=== PATIENT | female | born 1945 | race Two or more races ===

== ENCOUNTER 2019-03-11 18:00 | Emergency (ER) | payer OTHER, MEDICAID ==
[~2019-03-11] VITALS: Ht 162.6 cm; Wt 93.9 kg
[2019-03-11] MEDS ORDERED: cloNIDine HCL 0.1 MG TAB PO ONE (18:45)
[2019-03-11] MEDS ORDERED: FUROSEMIDE 40 MG/4 ML VIAL IV ONE (19:15)
[2019-03-11 19:45] LABS: Basophils # (auto) 0.1 uL; Basophils % (auto) 1.1 % (0.0-2.0); Eosinophils # (auto) 0.2 uL; Eosinophils % (auto) 2.3 % (0.0-7.0); Hematocrit 35.7 % (36.0-46.0); Hemoglobin 12.3 g/dL (12.2-16.2); Lymphocytes # (auto) 1.6 uL; Lymphocytes % (auto) 22.7 % (10.0-50.0); Mean Corpuscular Hemoglobin 31.9 pg (28.0-32.0); Mean Corpuscular Hgb Conc. 34.5 g/dL (32.0-36.0); Mean Corpuscular Volume 92.5 fL (80.0-100.0); Monocytes # (auto) 0.5 uL; Monocytes % (auto) 7.6 % (0.0-12.0); Neutrophils # (auto) 4.6 uL; Neutrophils % (auto) 66.3 % (37.0-80.0); Platelet Count (auto) 241 10^3/uL (140-450); Red Blood Cells 3.86 10^6/uL (4.0-5.20); Red Cell Distribution Width 13.1 % (11.8-14.3); White Blood Cell 6.9 10^3/uL (4.4-10.8)
[2019-03-11 19:58] LABS: Albumin 3.5 g/dL (3.4-5.0); Anion Gap 9 (5-15); BUN/Creatinine Ratio 24.1; Blood Urea Nitrogen 21 mg/dL (7-18); Calcium 8.7 mg/dL (8.5-10.1); Carbon Dioxide 28 mmol/L (21-32); Chloride 107 mmol/L (98-107); GFR African American 82 mL/min; GFR Non-African American 68 mL/min; Glucose 113 mg/dL (74-106); Potassium 3.9 mmol/L (3.5-5.1); Sodium 144 mmol/L (136-145)
[2019-03-11 20:06] LABS: Alanine Aminotransferase 20 U/L (13-56); Alkaline Phosphatase 86 U/L (45-117); Aspartate Aminotransferase 16 U/L (15-37); Bilirubin, Total 0.3 mg/dL (0.2-1.0); Magnesium 1.7 mg/dL (1.6-2.6)
[2019-03-11 21:04] VITALS: BP 153/75
== END 2019-03-11 21:00 | disposition home or self-care (01) ==
LOC: ER 18:09
DX: I16.0 Hypertensive urgency (principal); R07.89 Other chest pain; E11.9 Type 2 diabetes mellitus without complications; E78.5 Hyperlipidemia, unspecified; I10 Essential (primary) hypertension; E07.9 Disorder of thyroid, unspecified; Z90.49 Acquired absence of other specified parts of digestive tract; Z86.73 Personal history of transient ischemic attack (TIA), and cerebral infarction without residual deficits
CPT/HCPCS: 36415; 71046; 80053; 83735; 83880; 84484; 85025; 93005; 94761; 96374; 99284; J1940

== ENCOUNTER 2023-03-10 14:48 | Emergency (ER) | payer OTHER, MEDICAID ==
[~2023-03-10] VITALS: Ht 157.5 cm; Wt 82.0 kg
[2023-03-10 15:22] LABS: Basophils # (auto) 0 10 ^3/uL (0-0.2); Basophils % (auto) 0.3 % (0.0-2.0); Eosinophils # (auto) 0.1 10 ^3/uL (0-0.8); Eosinophils % (auto) 1.2 % (0.0-7.0); Hematocrit 34.4 % (36.0-46.0); Hemoglobin 11.2 g/dL (12.2-16.2); Lymphocytes # (auto) 1.1 10 ^3/uL (0.4-5.4); Lymphocytes % (auto) 13.2 % (10.0-50.0); Mean Corpuscular Hemoglobin 28.8 pg (28.0-32.0); Mean Corpuscular Hgb Conc. 32.5 g/dL (32.0-36.0); Mean Corpuscular Volume 88.5 fL (80.0-100.0); Monocytes # (auto) 0.5 10 ^3/uL (0-1.3); Monocytes % (auto) 5.8 % (0.0-12.0); Neutrophils # (auto) 6.6 10 ^3/uL (1.6-8.6); Neutrophils % (auto) 79.5 % (37.0-80.0); Red Blood Cells 3.89 10^6/uL (4.0-5.20); Red Cell Distribution Width 13.7 % (11.8-14.3); White Blood Cell 8.3 10^3/uL (4.4-10.8)
[2023-03-10 15:42] LABS: Albumin 3.1 g/dL (3.4-5.0); Calcium 8.3 mg/dL (8.5-10.1); Magnesium 2.4 mg/dL (1.6-2.6); Potassium 4.1 mmol/L (3.5-5.1)
[2023-03-10 15:45] LABS: BUN/Creatinine Ratio 12.1 (10.0-20.0); Bilirubin, Total 0.4 mg/dL (0.2-1.0); Total Protein 6.5 g/dL (6.4-8.2)
[2023-03-10 15:58] LABS: INR 0.99 (0.9-1.15); Partial Thromboplastin Time 28.6 SEC (24.5-34.5)
[2023-03-10] MEDS ORDERED: FURO1TAB31 PO (17:50)
[2023-03-10 18:15] VITALS: BP 146/82; PULSE 97; RESP 19; TEMP 98.4; O2SAT 97
== END 2023-03-10 18:18 | disposition home or self-care (01) ==
LOC: EDBD 14:48 → ER 14:48
DX: R60.0 Localized edema (principal); R07.89 Other chest pain; I10 Essential (primary) hypertension; E11.9 Type 2 diabetes mellitus without complications; E78.5 Hyperlipidemia, unspecified; I25.10 Atherosclerotic heart disease of native coronary artery without angina pectoris; Z90.49 Acquired absence of other specified parts of digestive tract
CPT/HCPCS: 36415; 71045; 80053; 83735; 83880; 84484; 85025; 85610; 85730; 93005

== ENCOUNTER 2023-03-16 16:46 | Emergency (ER) | payer OTHER, MEDICAID ==
[~2023-03-16] VITALS: Ht 165.1 cm; Wt 90.9 kg
[~2023-03-16 16:46] MED LIST: FURO1TAB31 PO
[2023-03-16] MEDS ORDERED: MORPHINE SULFATE 4 MG/ML SYR/VIAL IV ONE (17:15)
[2023-03-16] MEDS ORDERED: ONDANSETRON HCL 4 MG/2 ML VIAL IV ONE (17:15)
[2023-03-16 17:25] LABS: Basophils # (auto) 0 10 ^3/uL (0-0.2); Basophils % (auto) 0.4 % (0.0-2.0); Eosinophils # (auto) 0.1 10 ^3/uL (0-0.8); Eosinophils % (auto) 1.9 % (0.0-7.0); Hematocrit 31.4 % (36.0-46.0); Hemoglobin 10.5 g/dL (12.2-16.2); Lymphocytes % (auto) 12.6 % (10.0-50.0); Mean Corpuscular Hemoglobin 28.9 pg (28.0-32.0); Mean Corpuscular Hgb Conc. 33.3 g/dL (32.0-36.0); Mean Corpuscular Volume 86.9 fL (80.0-100.0); Monocytes # (auto) 0.5 10 ^3/uL (0-1.3); Monocytes % (auto) 6.9 % (0.0-12.0); Neutrophils # (auto) 6.1 10 ^3/uL (1.6-8.6); Neutrophils % (auto) 78.2 % (37.0-80.0); Nucleated Red Blood Cells % 0.1 %; Red Blood Cells 3.62 10^6/uL (4.0-5.20); White Blood Cell 7.8 10^3/uL (4.4-10.8)
[2023-03-16 17:43] LABS: Albumin 2.9 g/dL (3.4-5.0); Calcium 8.1 mg/dL (8.5-10.1); Magnesium 2.6 mg/dL (1.6-2.6); Potassium 3.1 mmol/L (3.5-5.1)
[2023-03-16 17:47] LABS: BUN/Creatinine Ratio 15.3 (10.0-20.0); Bilirubin, Total 0.2 mg/dL (0.2-1.0); Total Protein 6.4 g/dL (6.4-8.2)
[2023-03-16 19:10] VITALS: O2SAT 95
[2023-03-16 19:54] VITALS: BP 130/72; PULSE 78; RESP 16
== END 2023-03-16 19:52 | disposition home or self-care (01) ==
LOC: ER 16:46 → EDBD 16:46 → ER 19:52
DX: M79.10 Myalgia, unspecified site (principal); R07.89 Other chest pain; M25.511 Pain in right shoulder; M25.531 Pain in right wrist; I10 Essential (primary) hypertension; E03.9 Hypothyroidism, unspecified; E11.9 Type 2 diabetes mellitus without complications; E78.5 Hyperlipidemia, unspecified; Z90.49 Acquired absence of other specified parts of digestive tract; Z86.73 Personal history of transient ischemic attack (TIA), and cerebral infarction without residual deficits; Z79.899 Other long term (current) drug therapy
CPT/HCPCS: 36415; 71045; 73030; 73110; 80053; 83735; 84484; 85025; 85652; 93005; 96374; 96375; 99285; J2270; J2405

== ENCOUNTER 2025-03-31 15:51 | Inpatient (IN) | payer OTHER, MEDICAID ==
[~2025-03-31] VITALS: Ht 162.6 cm; Wt 88.1 kg
--- NOTE | 2025-03-31 16:22 | ED.PDOC ---
SOB-HPI HPI Comments This is a 79 year old female accompanied by family member presenting to the ED with chief complaint of SOB. Patient reports that she has been experiencing SOB with associated chest pain and bilateral leg swelling for the past 3 weeks, worsening over time. Patient relays that she visited Dr. Oquendo's walk in clinic today and was advised to come into the ED for further evaluation. Patient denies any fever, chills, dizziness, cough, congestion, or abdominal pain. Vital signs were stable at arrival. Chief Complaint: Shortness of Breath Time Seen by MD: 16:20 Primary Care Provider: DR. 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 History Family History Family History: Unknown Social History Smoker: Non-Smoker Alcohol: Denies ETOH Use Drugs: Denies Drug Use Lives In: Home Constitutional: denies: chills, diaphoresis, fatigue, fever, malaise, sweats, weakness, others EENTM: denies: blurred vision, double vision, ear bleeding, ear discharge, ear drainage, ear pain, ear ringing, eye pain, eye redness, hearing loss, mouth pain, mouth swelling, nasal discharge, nose bleeding, nose congestion, nose pain, photophobia, tearing, throat pain, throat swelling, voice changes, others Respiratory: reports: shortness of breath; denies: cough, hemoptysis, orthopnea, SOB at rest, SOB with excertion, stridor, wheezing, others Cardiovascular: reports: chest pain, edema; denies: dizzy spells, diaphoresis, Dyspnea on exertion, irregular heart beat, left arm pain, lightheadedness, palpitations, PND, syncope, others Gastrointestinal: denies: abdomen distended, abdominal pain, blood streaked bowels, constipated, diarrhea, dysphagia, difficulty swallowing, hematemesis, melena, nausea, poor appetite, poor fluid intake, rectal bleeding, rectal pain, vomiting, others Genitourinary: denies: abnormal vagina bleeding, burning, dyspareunia, dysuria, flank pain, frequency, hematuria, incontinence, pain, , vagina discharge, urgency, others Neurological: denies: dizziness, fainting, headache, left sided numbness, left sided weakness, numbness, paresthesia, pre-existing deficit, right sided numbness, right sided weakness, seizure, speech problems, tingling, tremors, weakness, others Musculoskeletal: denies: back pain, gout, joint pain, joint swelling, muscle pain, muscle stiffness, neck pain, others Integumetry: denies: bruises, change in color, change in hair/nails, dryness, laceration, lesions, lumps, rash, wounds, others Allergic/Immunocompromised: denies: Difficulty Healing, Frequent Infections, Hives, Itching, others Hematologic/Lymphatic: denies: anemia, blood clots, easy bleeding, easy bruising, swollen glands, others Endocrine: denies: excessive hunger, excessive sweating, excessive thirst, excessive urination, flushing, intolerance to cold, intolerance to heat, unexplained weight gain, unexplained weight loss, others Psychiatric: denies: anxiety, bipolar disorder, depression, hopeless, panic disorder, schizophrenia, sleepless, suicidal, others All Other Systems: Reviewed and Negative Physical Exam General Appearance: Moderate Distress (Hhya-ui-[id number] distress due to her chief complaints. Patient appears weak.), Obese HEENT: Normal ENT Inspection, Pharynx Normal, TMs Normal Neck: Full Range of Motion, Non-Tender, Normal, Normal Inspection Respiratory: Chest Non-Tender, No Accessory Muscle Use, No Respiratory Distress, Other (Patchy rhonchi appreciated in bilateral lower lobes as well as mild wheezing and right middle lobe.) Cardiovascular: No Edema, No JVD, No Murmur, No Gallop, Normal Peripheral Pulses, Regular Rate/Rhythm Breast Exam: Deferred Gastrointestinal: No Organomegaly, Non Tender, No Pulsatile Mass, Normal Bowel Sounds, Soft Genitalia: Deferred Pelvic: Deferred Rectal: Deferred Extremities: No calf tenderness, Normal capillary refill, Normal inspection, Normal range of motion, Non-tender, No pedal edema Neurologic: Alert Cerebellar Function: NOT DONE Reflexes: NOT DONE Skin: Dry, Normal Color, Warm Lymphatic: No Adenopathy Was a procedure done? Was a procedure done?: No Differential Dx Differential Diagnosis: CHF, Pneumonia, URI, Other (CHF, sepsis, electrolyte abnormality) X-Ray, Labs, Meds, VS Vital Signs Date Time Temp Pulse Resp B/P (MAP) Pulse Ox O2 Delivery O2 Flow Rate FiO2 03/31/25 20:42 98.1 80 16 143/91 (108) 95 98.1 03/31/25 16:03 87 03/31/25 15:52 97.4 96 18 152/86 93 97.4 Lab Test 03/31/25 21:02 03/31/25 18:29 03/31/25 16:47 Range/Units Urine Color Yellow Yellow Urine Clarity Clear Clear Urine pH 6.5 5.0-9.0 Urine Specific [place] 1.025 1.001-1.035 Urine Protein Negative Negative Urine Ketones Negative Negative Urine Blood Negative Negative /uL Urine Nitrite 1+ H Negative Urine Bilirubin Negative Negative Urine Urobilinogen 2 H Negative mg/dL Urine Leukocyte Esterase 2+ Negative /uL Urine RBC 2 0 - 4 /hpf Urine Microscopic WBC 12 H 0-5 /HPF Urine Squamous Epithelial Cells Few <5 /hpf Urine Bacteria Many H None Seen /hpf Urine Hyaline Casts Few 0 - 2 /lpf Urine Mucus Few None Seen Urine Glucose Normal Normal mg/dL Troponin I High Sensitivity 21 22 </=34 ng/L White Blood Count 7.1 4.4-10.8 10^3/uL Red Blood Count 3.93 L 4.0-5.20 10^6/uL Hemoglobin 12.0 L 12.2-16.2 g/dL Hematocrit 35.3 L 36.0-46.0 % Mean Corpuscular Volume 89.8 80.0-100.0 fL Mean Corpuscular Hemoglobin 30.4 28.0-32.0 pg Mean Corpuscular Hemoglobin Concent 33.9 32.0-36.0 g/dL Red Cell Distribution Width 13.3 11.8-14.3 % Platelet Count 256 140-450 10^3/uL Mean Platelet Volume 7.7 6.9-10.8 fL Neutrophils (%) (Auto) 75.4 37.0-80.0 % Lymphocytes (%) (Auto) 14.9 10.0-50.0 % Monocytes (%) (Auto) 7.4 0.0-12.0 % Eosinophils (%) (Auto) 2.1 0.0-7.0 % Basophils (%) (Auto) 0.2 0.0-2.0 % Neutrophils # (Auto) 5.4 1.6-8.6 10 ^3/uL Lymphocytes # (Auto) 1.1 0.4-5.4 10 ^3/uL Monocytes # (Auto) 0.5 0-1.3 10 ^3/uL Eosinophils # (Auto) 0.2 0-0.8 10 ^3/uL Basophils # (Auto) 0 0-0.2 10 ^3/uL Nucleated Red Blood Cells 0.0 % Sodium Level 141 136-145 mmol/L Potassium Level 4.1 3.5-5.1 mmol/L Chloride Level 100 98-107 mmol/L Carbon Dioxide Level 33 H 20-31 mmol/L Anion Gap 8 5-15 Blood Urea Nitrogen 28 H 9-23 mg/dL Creatinine 1.01 0.550-1.02 mg/dL Glomerular Filtration Rate Calc 57 >90 mL/min BUN/Creatinine Ratio 27.7 H 10.0-20.0 Serum Glucose 106 74-106 mg/dL Lactic Acid Level 0.9 0.4-2.0 mmol/L Calcium Level 9.1 8.7-10.4 mg/dL Total Bilirubin 0.6 0.2-1.0 mg/dL Aspartate Amino Transferase (AST) 20 13-40 U/L Alanine Aminotransferase (ALT) 17 7-40 U/L Alkaline Phosphatase 77 46-116 U/L B-Type Natriuretic Peptide 457.09 0-100 pg/mL Total Protein 6.8 5.7-8.2 g/dL Albumin 4.1 3.2-4.8 g/dL Lipase 26 12-53 U/L X-Ray, Labs, Meds, VS Comment All studies performed the ED were evaluated by me personally. Serum studies revealed an anemia, a CHF exacerbation as well as a urinary tract infection. Imaging studies revealed a pneumonia. Patient on patient's age and lack of home support, patient will be admitted for medical management of her multiple comorbidities. Time of 1ST Reevaluation: 23:01 Reevaluation 1ST: Improved Consultation: PCP Patient Education/Counseling: Diagnosis, Treatment Family Education/Counseling: Diagnosis, Treatment, No Family Present SEPSIS Sepsis Screen Date sepsis recognized/suspect: Mar 31, 2025 Time Sepsis recognized/suspect: 1552 Recent Procedure: No On Antibiotic Therapy: No Respiratory Rate >20: No Heart Rate >90: Yes Temp<36 C (96.8 F) or >38.3 C: No SBP <90 or MAP <65 mmHG: No New Acute Mental Status Change: No Is the patient on CPAP, BIPAP,: No Physician Orders Electrocardigram (03/31/25 16:11) Heplock Iv (03/31/25 ) Bilat Lower Dvt (03/31/25 16:18) Chest Portable (03/31/25 16:18) Vital Signs Date Time Temp Pulse Resp B/P (MAP) Pulse Ox O2 Delivery O2 Flow Rate FiO2 03/31/25 20:42 98.1 80 16 143/91 (108) 95 98.1 03/31/25 16:03 87 03/31/25 15:52 97.4 96 18 152/86 93 97.4 Laboratory Tests Test 03/31/25 16:47 Lactic Acid Level 0.9 mmol/L (0.4-2.0) White Blood Count 7.1 10^3/uL (4.4-10.8) Departure 1 Departure Time of Disposition: 23:02 Impression: Primary Impression: Pneumonia Additional Impressions: Acute exacerbation of CHF (congestive heart failure) Urinary tract infection Anemia Disposition: 09 ADMITTED INPATIENT Condition: Fair 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 Electronically submitted by Zack Verduzco ([email or web address]). CINDY ARGUETA PAC Mar 31, 2025 16:22
--- NOTE | 2025-03-31 16:52 | DVH ---
EXAM: XY CHEST PORTABLE HISTORY: Shortness of breath COMPARISON: XY CHEST PORTABLE on DOS: 03/16/23, XY CHEST PORTABLE on DOS: 03/10/23, CHEST TWO VIEWS ROU LUDMILA on DOS: 03/11/19, CT scan of the chest dated 11/24/2024. TECHNIQUE: Portable upright AP view of the chest was performed. FINDINGS: There are mild patchy opacities in the lung bases. No pneumothorax or pulmonary edema. The heart is enlarged. There are postoperative changes of the cervical spine. IMPRESSION: 1. Mild patchy opacities in the lung bases may be due to scarring, atelectasis, or pneumonia. 2. Cardiomegaly.
--- NOTE | 2025-03-31 16:54 | DVH ---
BILATERAL LOWER EXTREMITY VENOUS DUPLEX REASON FOR EXAMINATION: Bilateral DVT rule out COMPARISON: None TECHNIQUE: Using real-time freeze-frame technique with a high-frequency transducer, multiple longitu dinal and transverse sections were obtained. Simultaneous color flow and spectral Doppler imaging wa s performed. FINDINGS: There is good visualization of the deep venous system with no intraluminal filling defects identified. Normal venous compressibility is seen and there is flow augmentation. Color flow Doppler imaging is unremarkable. There is mild subcutaneous edema in the right calf. IMPRESSION: NO EVIDENCE OF DEEP VENOUS THROMBOSIS.
[2025-03-31 17:17] LABS: Hematocrit 35.3 % (36.0-46.0); Hemoglobin 12.0 g/dL (12.2-16.2); Mean Corpuscular Hemoglobin 30.4 pg (28.0-32.0); Mean Corpuscular Volume 89.8 fL (80.0-100.0); Nucleated Red Blood Cells % 0.0 %
[2025-03-31 17:28] LABS: Alanine Aminotransferase 17 U/L (7-40); Alkaline Phosphatase 77 U/L (46-116); Anion Gap 8 (5-15); BUN/Creatinine Ratio 27.7 (10.0-20.0); Calcium 9.1 mg/dL (8.7-10.4); Chloride 100 mmol/L (98-107); Lipase 26 U/L (12-53); Potassium 4.1 mmol/L (3.5-5.1); Sodium 141 mmol/L (136-145); Total Protein 6.8 g/dL (5.7-8.2)
[2025-03-31 17:29] LABS: Albumin 4.1 g/dL (3.2-4.8); Bilirubin, Total 0.6 mg/dL (0.2-1.0)
[2025-03-31 17:32] LABS: Blood Urea Nitrogen 28 mg/dL (9-23); Carbon Dioxide 33 mmol/L (20-31); Glucose 106 mg/dL (74-106)
[2025-03-31 22:35] LABS: Urine Protein, UAD Negative (Negative)
[2025-03-31] MEDS: cefTRIAXone 1GM/50ML D5W 50 ML IV ONE (23:36)
[2025-03-31] MEDS: FUROSEMIDE 40 MG/4 ML VIAL IV ONE (23:36)
[2025-03-31] MEDS: AZITHROMYCIN 500MG/ 250ML 250 ML IV ONE (23:48)
--- NOTE | 2025-03-31 23:55 | DVHHPRES ---
History of Present Illness Resident Creating Document: ARLEY MANUEL RESIDENT History of Present Illness Rain Carlin is a 79-year-old female, with past medical history of hypertension, hyperlipidemia, pre-Diabetic and CVA. The patient came to the ED with a chief complaint of 3 week of progressively worsening bilateral swelling edema, associated with shortness of breath after light walking or mild activities and orthopnea 'I cannot sleep flat" she reports she sleeps in the couch. Today, the patient visited her primary doctor (Dr. [facility] walk in clinic) who advised to come into the ED for further evaluation. The patient denies fever, chills, cough, lightheadedness. On the initial evaluation the EKG showed: Atrial fibrillation and BNP is 457.09. The patient will be admitted for further evaluation and management. 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 Bilateral tunel carpal surgery, Rotator cuff surgery, left ankle surgery. ), Total knee replacement (Billateral) Family History: Hypertension Smoke: No Occupation: Retired ALCOHOL: none Drugs: None Lives: with Family (Lives with son.) Review of Systems Constitutional: No: Fever, Chills, Sweats, Weakness, Malaise, Other Eyes: No: Pain, Vision change, Conjunctivae inflammation, Eyelid inflammation, Other, Redness ENT: No: Ear pain, Ear discharge, Nose pain, Nose discharge, Nose congestion, Mouth pain, Mouth swelling, Throat pain, Throat swelling, Other Respiratory: No: Cough, Dry, Shortness of breath, SOB with excertion, Wheezing, Hemoptysis, Pleuritic Pain, Sputum, Wheezing, Other Cardiovascular: Orthopnea, Edema; No: Chest Pain, Palpitations, Paroxysmal Noc. Dyspnea, Lt Headedness, Other Gastrointestinal: No: Nausea, Vomiting, Abdominal Pain, Diarrhea, Constipation, Melena, Hematochezia, Other Genitourinary: No Dysuria, No Frequency, No Incontinence, No Hematuria, No Retention, No Other Musculoskeletal: No: other, neck pain, shoulder pain, arm pain, back pain, hand pain, leg pain, foot pain Skin: No: Rash, Lesions, Jaundice, Bruising, Other Neurological: No: Weakness, Numbness, Incoordination, Change in speech, Confusion, Seizures, Other Allergies: Coded Allergies: NO KNOWN ALLERGIES (Unverified , 03/11/19) Exam Vital Signs Vital Signs Date Time Temp Pulse Resp B/P (MAP) Pulse Ox O2 Delivery O2 Flow Rate FiO2 03/31/25 23:36 156/94 03/31/25 23:15 98.1 89 16 97 98.1 General Appearance: Alert, Oriented X3, Cooperative HEENT: Atraumatic, Mucous membr. moist/pink Respiratory: Clear to auscultation, Normal air movement Cardiovascular: Regular rate, Normal S1, Normal S2, No murmurs Abdominal: Normal bowel sounds, Soft, No tenderness, No hepatospenomegaly, No masses Extremities: No clubbing, No cyanosis, No edema (Bilateral lower extremity pitting edema up to the knees.), Other (Pulses hard to palapate due to the edema. Edema is painful to deep pressure. ) Skin: No rashes, No breakdown Neuro: Normal gait, Normal speech, Strength at 5/5 X4 ext, Normal tone, Sensation intact Psych/Mental Status: Mental status NL, Mood NL Labs/Xrays Labs Test 03/31/25 21:02 03/31/25 18:29 03/31/25 16:47 Range/Units Urine Color Yellow Yellow Urine Clarity Clear Clear Urine pH 6.5 5.0-9.0 Urine Specific [place] 1.025 1.001-1.035 Urine Protein Negative Negative Urine Ketones Negative Negative Urine Blood Negative Negative /uL Urine Nitrite 1+ H Negative Urine Bilirubin Negative Negative Urine Urobilinogen 2 H Negative mg/dL Urine Leukocyte Esterase 2+ Negative /uL Urine RBC 2 0 - 4 /hpf Urine Microscopic WBC 12 H 0-5 /HPF Urine Squamous Epithelial Cells Few <5 /hpf Urine Bacteria Many H None Seen /hpf Urine Hyaline Casts Few 0 - 2 /lpf Urine Mucus Few None Seen Urine Glucose Normal Normal mg/dL Troponin I High Sensitivity 21 </=34 ng/L White Blood Count 7.1 4.4-10.8 10^3/uL Red Blood Count 3.93 L 4.0-5.20 10^6/uL Hemoglobin 12.0 L 12.2-16.2 g/dL Hematocrit 35.3 L 36.0-46.0 % Mean Corpuscular Volume 89.8 80.0-100.0 fL Mean Corpuscular Hemoglobin 30.4 28.0-32.0 pg Mean Corpuscular Hemoglobin Concent 33.9 32.0-36.0 g/dL Red Cell Distribution Width 13.3 11.8-14.3 % Platelet Count 256 140-450 10^3/uL Mean Platelet Volume 7.7 6.9-10.8 fL Neutrophils (%) (Auto) 75.4 37.0-80.0 % Lymphocytes (%) (Auto) 14.9 10.0-50.0 % Monocytes (%) (Auto) 7.4 0.0-12.0 % Eosinophils (%) (Auto) 2.1 0.0-7.0 % Basophils (%) (Auto) 0.2 0.0-2.0 % Neutrophils # (Auto) 5.4 1.6-8.6 10 ^3/uL Lymphocytes # (Auto) 1.1 0.4-5.4 10 ^3/uL Monocytes # (Auto) 0.5 0-1.3 10 ^3/uL Eosinophils # (Auto) 0.2 0-0.8 10 ^3/uL Basophils # (Auto) 0 0-0.2 10 ^3/uL Nucleated Red Blood Cells 0.0 % Sodium Level 141 136-145 mmol/L Potassium Level 4.1 3.5-5.1 mmol/L Chloride Level 100 98-107 mmol/L Carbon Dioxide Level 33 H 20-31 mmol/L Anion Gap 8 5-15 Blood Urea Nitrogen 28 H 9-23 mg/dL Creatinine 1.01 0.550-1.02 mg/dL Glomerular Filtration Rate Calc 57 >90 mL/min BUN/Creatinine Ratio 27.7 H 10.0-20.0 Serum Glucose 106 74-106 mg/dL Lactic Acid Level 0.9 0.4-2.0 mmol/L Calcium Level 9.1 8.7-10.4 mg/dL Total Bilirubin 0.6 0.2-1.0 mg/dL Aspartate Amino Transferase (AST) 20 13-40 U/L Alanine Aminotransferase (ALT) 17 7-40 U/L Alkaline Phosphatase 77 46-116 U/L B-Type Natriuretic Peptide 457.09 0-100 pg/mL Total Protein 6.8 5.7-8.2 g/dL Albumin 4.1 3.2-4.8 g/dL Lipase 26 12-53 U/L SEPSIS Sepsis Screen Date sepsis recognized/suspect: Mar 31, 2025 Time Sepsis recognized/suspect: 1552 Recent Procedure: No On Antibiotic Therapy: Yes Respiratory Rate >20: No Heart Rate >90: Yes Temp<36 C (96.8 F) or >38.3 C: No SBP <90 or MAP <65 mmHG: No New Acute Mental Status Change: No Is the patient on CPAP, BIPAP,: No Physician Orders Electrocardigram (03/31/25 16:11) Heplock Iv (03/31/25 ) Bilat Lower Dvt (03/31/25 16:18) Chest Portable (03/31/25 16:18) Azithromycin 500mg/ 250ml (Zithromax 50 (03/31/25 23:15) Vital Signs Date Time Temp Pulse Resp B/P (MAP) Pulse Ox O2 Delivery O2 Flow Rate FiO2 03/31/25 23:36 156/94 03/31/25 23:15 98.1 89 16 156/94 (114) 97 98.1 03/31/25 20:42 98.1 80 16 143/91 (108) 95 98.1 03/31/25 16:03 87 Laboratory Tests Test 03/31/25 16:47 Lactic Acid Level 0.9 mmol/L (0.4-2.0) White Blood Count 7.1 10^3/uL (4.4-10.8) Medications Medications Dose Ordered Sig/Thony Route Start Time Stop Time Status Last Admin Dose Admin Azithromycin 250 ml @ 125 mls/hr ONCE ONCE IV 03/31/25 23:15 04/01/25 01:14 03/31/25 23:48 125 MLS/HR Ceftriaxone Sodium 50 ml @ 100 mls/hr ONCE ONCE IV 03/31/25 23:15 03/31/25 23:44 DC 03/31/25 23:36 100 MLS/HR Furosemide 40 mg ONCE ONCE IV 03/31/25 23:15 03/31/25 23:16 DC 03/31/25 23:36 40 MG Assessment/Plan Assessment/Plan #Acute CHF exacerbation Systolic vs Diastolic EKG ECHOD2 Furosemide 40mg IV BID Strict I&O Cardiac Diet Cardiology Consult #Pneumonia Gram -/+ Chest X-ray Azithromycin 500mg IV Ceftriaxone 1g IV Blood culture Covid test Influenza Test #New Onset of Afib EKG: atrial fibrillation [id number] score 7 points Apixaban 5mg po BID #Ruled out DVT Bilateral Swelling edema and new onset SOB Bilateral leg US Doppler (-) #UTI possible cystitis UA positive Urine Culture Ceftriaxone 1g IV #Hypertension Losartan 50 mg po qd #Pre-Diabetes? HbA1c #Hx of CVA #Hyperlipidemia Lipid Panel Atorvastatin 40mg po qd #Hypothyroidism TSH T4 free Home medications reconciliation #Obesity Life style changes counselling Cardiac diet DVT prophylaxis- patient on Apixaban PUD prophylaxis Protonic. Goals of care discussed with the patient > 35 min. Discussed plan of care with Dr. Morocho Code status: Full code PCP: Dr. Nancy Morris ([facility]) Plan discussed with: Patient, the patient agrees with the admission plan. Plan discussed with: Patient Date of Service: Mar 31, 2025 Billing Provider: STACEY MOROCHO MD Common Visit Codes: [id number] INP/OBS CARE (HIGH) Secondary Visit Codes: 70051-[id number] CARE PLAN 30 MINUTES ARLEY MANUEL RESIDENT Mar 31, 2025 23:55
[2025-04-01] VITALS (7 sets, daily range): BP systolic 117–143; BP diastolic 60–92; PULSE 18–99; RESP 17–24; TEMP 97.1–98.4; O2SAT 0–95
[2025-04-01] MEDS ORDERED: ENOXAPARIN SOD 100 MG/1 ML SYRINGE SC SCH (01:00)
[2025-04-01 02:25] LABS: Cannabinoid Screen, Urine Neg (NEGATIVE)
[2025-04-01 02:52] LABS: Amphetamine Screen, Urine Neg (NEGATIVE); Barbiturate Scree,Urine Neg (NEGATIVE); Benzodiazephine Screen, Urine Neg (NEGATIVE); Cocaine Screen, Urine Neg (NEGATIVE); Opiate Scree,Urine Neg (NEGATIVE); Phencyclidine Screen, Urine Neg (NEGATIVE)
--- NOTE | 2025-04-01 04:06 | ECG ---
[facility] Test Date: 2025-03-31 Test Time: 16:03:08 Pat Name: PADMA GILES Department: Room: 0237T Gender: F Serologist: DR MOORE: 1945 Requested By: CINDY ARGUETA Order Number: [id number] Reading MD: Car [place] Measurements Intervals [place] Rate: 87 P: 0 DE: 0 QRS: -73 QRSD: 134 T: 51 QT: 395 QTc: 476 Interpretive Statements Atrial fibrillation Nonspecific IVCD with LAD Anteroseptal infarct, old Electronically Signed On 04-03-2025 22:51:16 PDT by Car [place] Please click the below link to view image of tracing.
[2025-04-01 05:07] LABS: COVID19 ANTIGEN SOFIA FIA NEGATIVE (NEGATIVE)
[2025-04-01 05:07] LABS: Hematocrit 35.2 % (36.0-46.0); Hemoglobin 11.8 g/dL (12.2-16.2); Mean Corpuscular Hemoglobin 30.2 pg (28.0-32.0); Mean Corpuscular Volume 90.0 fL (80.0-100.0); Nucleated Red Blood Cells % 0.1 %
[2025-04-01 05:16] LABS: Chloride 100 mmol/L (98-107); Potassium 3.6 mmol/L (3.5-5.1); Sodium 141 mmol/L (136-145)
[2025-04-01 05:17] LABS: Anion Gap 9 (5-15); Calcium 9.1 mg/dL (8.7-10.4)
[2025-04-01 05:18] LABS: Carbon Dioxide 32 mmol/L (20-31)
[2025-04-01 05:22] LABS: BUN/Creatinine Ratio 20.2 (10.0-20.0); Glucose 97 mg/dL (74-106); Triglycerides 86 mg/dL (< 150)
[2025-04-01 05:23] LABS: Blood Urea Nitrogen 23 mg/dL (9-23)
[2025-04-01 05:24] LABS: Cholesterol 133 mg/dL (< 200); HDL Cholesterol 36 mg/dL (40-59)
[2025-04-01] MEDS: FUROSEMIDE 40 MG/4 ML VIAL IV SCH (09:16)
[2025-04-01] MEDS: cefTRIAXone 1GM/50ML D5W 50 ML IV SCH (09:16)
[2025-04-01] MEDS: APIXABAN 5 MG TAB PO SCH (09:17)
[2025-04-01] MEDS: PANTOPRAZOLE 40 MG TAB PO SCH (09:17)
[2025-04-01] MEDS: ATORVASTATIN 20 MG TAB PO SCH (09:18)
[2025-04-01] MEDS: LOSARTAN POTASSIUM 50 MG TAB PO SCH (09:18)
--- NOTE | 2025-04-01 09:35 | DVHPN2 ---
Subjective Patient does report having mild chest heaviness. Reviewed: Care Plan, H&P, Labs, Medications, Previous Orders Changes from previous H/P or p: No Changes General: Per HPI Eyes: No Pain, No Vision change, No Conjunctivae inflammation, No Eyelid inflammation, No Other, No Redness ENT: No Ear pain, No Ear discharge, No Nose pain, No Nose discharge, No Nose congestion, No Mouth pain, No Mouth swelling, No Throat pain, No Throat swelling, No Other Cardiovascular: No Chest Pain, No Palpitations; Orthopnea; No Paroxysmal Noc. Dyspnea; Edema; No Lt Headedness, No Other Respiratory: No Cough, No Dry, No Shortness of breath, No SOB with excertion, No Wheezing, No Hemoptysis, No Pleuritic Pain, No Sputum, No Other Gastrointestinal: No Nausea, No Vomiting, No Abdominal Pain, No Diarrhea, No Constipation, No Melena, No Hematochezia, No Other Genitourinary: No Dysuria, No Frequency, No Incontinence, No Hematuria, No Retention, No Other Musculoskeletal: No other, No neck pain, No shoulder pain, No arm pain, No back pain, No hand pain, No leg pain, No foot pain Skin: No Rash, No Lesions, No Jaundice, No Bruising, No Other Objective Vitals Vital Signs Date Time Temp Pulse Resp B/P (MAP) Pulse Ox O2 Delivery O2 Flow Rate FiO2 04/01/25 09:18 142/92 04/01/25 06:59 84 18 04/01/25 03:51 Room Air* 0 21 04/01/25 02:30 95 04/01/25 01:34 98.5 98.5 General Appearance: Alert, Oriented X3, Cooperative, mild distress HEENT: Atraumatic, PERRLA Cardiovascular: Normal S1, Normal S2 Genitourinary: No Apparent Abnormalities Extremities: No clubbing, No cyanosis, Other (Plus three pitting edema to bilateral lower extremities) Neuro: Normal gait, Normal speech Skin: Dry, Intact Psych/Mental Status: Mental status NL, Mood NL Medications Current Medications Medications Dose Ordered Sig/Thony Route Start Time Stop Time Status Last Admin Dose Admin Furosemide 40 mg BID IV 04/01/25 10:00 04/01/25 09:16 40 MG Losartan Potassium 50 mg DAILY PO 04/01/25 10:00 04/01/25 09:18 50 MG Pantoprazole Sodium 40 mg DAILY PO 04/01/25 10:00 04/01/25 09:17 40 MG Ceftriaxone Sodium 50 ml @ 100 mls/hr DAILY IV 04/01/25 10:00 04/01/25 09:16 100 MLS/HR Azithromycin 250 ml @ 125 mls/hr DAILY IV 04/01/25 10:00 Apixaban 5 mg BID PO 04/01/25 10:00 04/01/25 09:17 5 MG Atorvastatin Calcium 40 mg DAILY PO 04/01/25 10:00 04/01/25 09:18 40 MG Laboratory Results Laboratory Tests 04/01/25 04:52 Chemistry Test 03/31/25 16:47 04/01/25 04:52 Albumin 4.1 g/dL (3.2-4.8) Calcium Level 9.1 mg/dL (8.7-10.4) 9.1 mg/dL (8.7-10.4) Total Protein 6.8 g/dL (5.7-8.2) Lipid panel Test 03/31/25 16:47 04/01/25 04:52 Lipase 26 U/L (12-53) Cholesterol Level 133 mg/dL (< 200) HDL Cholesterol 36 mg/dL (40-59) L Triglycerides Level 86 mg/dL (< 150) Cardiac Markers Test 03/31/25 16:47 B-Type Natriuretic Peptide 457.09 pg/mL (0-100) LFT Test 03/31/25 16:47 Alanine Aminotransferase (ALT) 17 U/L (7-40) Alkaline Phosphatase 77 U/L (46-116) Aspartate Amino Transferase (AST) 20 U/L (13-40) Total Bilirubin 0.6 mg/dL (0.2-1.0) HgA1c, TSH Test 04/01/25 04:52 Hemoglobin A1c 5.9 % A1C (<5.7) H Thyroid Stimulating Hormone (TSH) 8.47 uIU/mL (0.55-4.78) H Urinalysis Test 03/31/25 21:02 Urine Color Yellow (Yellow) Urine Clarity Clear (Clear) Urine pH 6.5 (5.0-9.0) Urine Specific [place] 1.025 (1.001-1.035) Urine Protein Negative (Negative) Urine Ketones Negative (Negative) Urine Blood Negative /uL (Negative) Urine Nitrite 1+ (Negative) H Urine Bilirubin Negative (Negative) Urine Urobilinogen 2 mg/dL (Negative) H Urine Leukocyte Esterase 2+ /uL (Negative) Urine RBC 2 /hpf (0 - 4) Urine Microscopic WBC 12 /HPF (0-5) H Urine Squamous Epithelial Cells Few /hpf (<5) Urine Bacteria Many /hpf (None Seen) H Urine Hyaline Casts Few /lpf (0 - 2) Urine Mucus Few (None Seen) Urine Glucose Normal mg/dL (Normal) Labs and/or images reviewed: Labs reviewed by me, Image(s) reviewed by me Assessment/Plan Assessment/Plan Impression: -acute decompensated heart failure, probable diastolic -prediabetes -primary hypertension -atrial fibrillation -dyslipidemia -Hypothyroidism -obesity Plan: -continue IV diuresis -continue losartan, add beta jose j, carvedilol -patient placed on Eliquis for atrial fibrillation by admitting hospitalist. Continue until seen by Cardiology -cardiology consultation -continue thyroid supplementation -repeat labs in a.m. -echocardiogram: Pending Total time spent with patient discussing and formulating plan of care: 35 minutes. This medical document was created using an electronic medical record system with [employer] dictation system. Although this document has been carefully reviewed, there may still be some phonetic and typographical errors. These areas are purely typographical due to imperfections of the software programs, and do not reflect any compromise in the patient's medical care. Plan discussed with: Patient, Other (RN) My Orders Orders - REY LUCAS NP Procedure Category Date Status Time Carvedilol Tablet PHA 04/01/25 Transmitted (Coreg Tablet) 10:00 Basic Metabolic Panel LAB 04/02/25 Verified 04:00 Magnesium LAB 04/02/25 Verified 04:00 * Cardiology Consult CONS 04/01/25 Transmitted 09:28 Date of Service: Apr 01, 2025 Billing Provider: REY LUCAS NP Common Visit Codes: [id number] INP/OBS CARE(HIGH) REY LUCAS NP Apr 01, 2025 09:35
[2025-04-01] MEDS: AZITHROMYCIN 500MG/ 250ML 250 ML IV SCH (10:49)
[2025-04-01] MEDS: CARVEDILOL 3.125 MG TAB PO SCH (10:52)
--- NOTE | 2025-04-01 17:48 | DVHINCON2 ---
Date Seen: Apr 01, 2025 Referring Physician WILDER Emery Reason for Consultation Acute CHF History of Present Illness 79-year-old B[place]ian-speaking female with past medical history of hypertension, diabetes mellitus, CVA, hypothyroidism, and obesity presents to the ED with progressive bilateral lower extremity swelling for three weeks, associated with shortness of breath, dyspnea on exertion, and orthopnea. She denies chest pain, palpitations, syncope, or prior history of congestive heart failure or atrial fibrillation. On exam, patient reports worsening shortness of breath and has +3 bilateral pitting edema. Twelve lead EKG showed atrial fibrillation at a controlled ventricular rate. BNP was elevated at 457. Chest x-ray revealed cardiomegaly. The primary team initiated carvedilol, Eliquis, and IV Lasix. Echocardiogram is pending. Past Medical History As stated in HPI Past Surgical History Cholecystectomy Family History Reviewed, non-contributory to the management of this case. Social History The patient lives at home, denies smoking, alcohol or illicit drugs abuse. Allergies: Coded Allergies: NO KNOWN ALLERGIES (Unverified , 03/11/19) Home Meds Active Scripts Furosemide (Lasix) 40 Mg Tab, 40 MG PO DAILY, #30 TAB Prov:GURDEEP COREY Masood DO 03/10/23 Current Medications Current Medications Medications (Trade) Dose Ordered Sig/Thony Route PRN Reason Start Time Stop Time Status Last Admin Furosemide (Lasix Injection) 40 mg BID IV 04/01/25 10:00 04/01/25 09:16 Losartan Potassium (Cozaar Tablet) 50 mg DAILY PO 04/01/25 10:00 04/01/25 09:18 Enoxaparin Sodium (Lovenox) 90 mg Q12HR SC 04/01/25 01:00 04/01/25 01:23 DC Pantoprazole Sodium (Protonix Tablet) 40 mg DAILY PO 04/01/25 10:00 04/01/25 09:17 Ceftriaxone Sodium 50 ml @ 100 mls/hr DAILY IV 04/01/25 10:00 04/01/25 09:16 Azithromycin 250 ml @ 125 mls/hr DAILY IV 04/01/25 10:00 04/01/25 10:49 Apixaban (Eliquis) 5 mg BID PO 04/01/25 10:00 04/01/25 09:17 Atorvastatin Calcium (Lipitor) 40 mg DAILY PO 04/01/25 10:00 04/01/25 09:18 Carvedilol (Coreg Tablet) 3.125 mg Q12HR PO 04/01/25 10:00 04/01/25 10:52 Review of Systems Constitutional: No symptom reported Ears, Nose, & Throat: No symptom reported Eyes: No symptom reported Neurological: No symptoms reported Pulmonary/Respiratory: Shortness of breath, orthopnea, no cough Cardiovascular: Bilateral leg swelling, dyspnea. Denies chest pain, palpit ations, or syncope. Gastrointestinal: No symptom reported Genitourinary: No symptom reported Musculoskeletal: No symptom reported Skin: No symptom reported Psychiatric: No symptom reported Endocrine: No symptom reported Hemotologic/Lymphatic: No symptom reported Vital Signs Vital Signs Date Time Temp Pulse Resp B/P (MAP) Pulse Ox O2 Delivery O2 Flow Rate FiO2 04/01/25 17:00 97.1 85 17 122/81 (95) 95 97.1 04/01/25 09:00 Room Air* 0 21 Physical Exam INITIAL VITAL SIGNS: Reviewed by me GENERAL: Alert and interactive. No acute distress. HEAD: Head is normocephalic and atraumatic. EYES: EOMI, PERRL. No scleral icterus. No conjunctival injection. ENT: Moist mucous membranes. NECK: Supple, No masses, Full range of motion. RESPIRATORY: Bibasilar crackles. No wheezing CV: Irregularly irregular rhythm, bilateral lower extremity +3 pitting edema, dyspnea. Orthopnea GI/: Active bowel sounds, soft, nondistended, nontender. No guarding. No rebound. No masses. No CVA tenderness. INTEGUMENTARY: Warm and dry. No obvious rashes. NEUROLOGIC: Alert and oriented. Face is symmetric. Speech is normal. Moves all extremities equally. Labs/Diagnostic Data Labs Test 04/01/25 04:52 04/01/25 03:30 03/31/25 21:02 03/31/25 18:29 Range/Units White Blood Count 7.8 4.4-10.8 10^3/uL Red Blood Count 3.91 L 4.0-5.20 10^6/uL Hemoglobin 11.8 L 12.2-16.2 g/dL Hematocrit 35.2 L 36.0-46.0 % Mean Corpuscular Volume 90.0 80.0-100.0 fL Mean Corpuscular Hemoglobin 30.2 28.0-32.0 pg Mean Corpuscular Hemoglobin Concent 33.5 32.0-36.0 g/dL Red Cell Distribution Width 13.6 11.8-14.3 % Platelet Count 244 140-450 10^3/uL Mean Platelet Volume 7.5 6.9-10.8 fL Neutrophils (%) (Auto) 77.6 37.0-80.0 % Lymphocytes (%) (Auto) 12.6 10.0-50.0 % Monocytes (%) (Auto) 7.2 0.0-12.0 % Eosinophils (%) (Auto) 2.0 0.0-7.0 % Basophils (%) (Auto) 0.6 0.0-2.0 % Neutrophils # (Auto) 6.0 1.6-8.6 10 ^3/uL Lymphocytes # (Auto) 1.0 0.4-5.4 10 ^3/uL Monocytes # (Auto) 0.6 0-1.3 10 ^3/uL Eosinophils # (Auto) 0.2 0-0.8 10 ^3/uL Basophils # (Auto) 0 0-0.2 10 ^3/uL Nucleated Red Blood Cells 0.1 % Sodium Level 141 136-145 mmol/L Potassium Level 3.6 3.5-5.1 mmol/L Chloride Level 100 98-107 mmol/L Carbon Dioxide Level 32 H 20-31 mmol/L Anion Gap 9 5-15 Blood Urea Nitrogen 23 9-23 mg/dL Creatinine 1.14 H 0.550-1.02 mg/dL Glomerular Filtration Rate Calc 49 >90 mL/min BUN/Creatinine Ratio 20.2 H 10.0-20.0 Serum Glucose 97 74-106 mg/dL Hemoglobin A1c 5.9 H <5.7 % A1C Calcium Level 9.1 8.7-10.4 mg/dL Triglycerides Level 86 < 150 mg/dL Cholesterol Level 133 < 200 mg/dL LDL Cholesterol 93 < 100 mg/dL HDL Cholesterol 36 L 40-59 mg/dL Thyroid Stimulating Hormone (TSH) 8.47 H 0.55-4.78 uIU/mL Free Thyroxine (T4) Calculated 0.87 L 0.89-1.76 ng/dL Influenza Type A Antigen Negative Negative Influenza Type B Antigen Negative Negative SARS-CoV-2 Antigen (Rapid) Negative NEGATIVE Urine Color Yellow Yellow Urine Clarity Clear Clear Urine pH 6.5 5.0-9.0 Urine Specific [place] 1.025 1.001-1.035 Urine Protein Negative Negative Urine Ketones Negative Negative Urine Blood Negative Negative /uL Urine Nitrite 1+ H Negative Urine Bilirubin Negative Negative Urine Urobilinogen 2 H Negative mg/dL Urine Leukocyte Esterase 2+ Negative /uL Urine RBC 2 0 - 4 /hpf Urine Microscopic WBC 12 H 0-5 /HPF Urine Squamous Epithelial Cells Few <5 /hpf Urine Bacteria Many H None Seen /hpf Urine Hyaline Casts Few 0 - 2 /lpf Urine Mucus Few None Seen Urine Glucose Normal Normal mg/dL Urine Opiates Screen Neg NEGATIVE Urine Fentanyl Screen Neg NEGATIVE Urine Barbiturates Screen Neg NEGATIVE Urine Phencyclidine Screen Neg NEGATIVE Urine Amphetamines Screen Neg NEGATIVE Urine Benzodiazepines Screen Neg NEGATIVE Urine Cocaine Screen Neg NEGATIVE Urine Cannabinoids Screen Neg NEGATIVE Troponin I High Sensitivity 21 </=34 ng/L Test 03/31/25 16:47 Range/Units Lactic Acid Level 0.9 0.4-2.0 mmol/L Total Bilirubin 0.6 0.2-1.0 mg/dL Aspartate Amino Transferase (AST) 20 13-40 U/L Alanine Aminotransferase (ALT) 17 7-40 U/L Alkaline Phosphatase 77 46-116 U/L B-Type Natriuretic Peptide 457.09 0-100 pg/mL Total Protein 6.8 5.7-8.2 g/dL Albumin 4.1 3.2-4.8 g/dL Lipase 26 12-53 U/L PROCEDURE(s): CXRP - CHEST PORTABLE REASON: Shortness of breath ORDER NUMBER(s): [id number], ACCESSION NUMBER(s): [id number] EXAM: XY CHEST PORTABLE HISTORY: Shortness of breath COMPARISON: XY CHEST PORTABLE on DOS: 03/16/23, XY CHEST PORTABLE on DOS: 03/10/23, CHEST TWO VIEWS ROUTINE on DOS: 03/11/19, CT scan of the chest dated 11/24/2024. TECHNIQUE: Portable upright AP view of the chest was performed. FINDINGS: There are mild patchy opacities in the lung bases. No pneumothorax or pulmonary edema. The heart is enlarged. There are postoperative changes of the cervical spine. IMPRESSION: 1. Mild patchy opacities in the lung bases may be due to scarring, atelectasis, or pneumonia. 2. Cardiomegaly. Assessment Rule out systolic and diastolic heart failure New onset Atrial fibrillation, controlled rate ( CHADS-VASc score 7, HAS-BLED score 3) Hypertension Dyslipidemia Hypothyroidism Obesity UTI Plan/Recommendation (Dr. Murphy ): * Continue rate control with carvedilol * Anticoagulation: Continue Eliquis for stroke prevention in AFib, monitor renal function and bleeding risk * Diuresis: Continue IV Lasix, monitor I/O, daily weights, electrolytes, renal function * Echocardiogram pending--assess EF, diastolic function, and valvular disease * Monitor electrolytes (K, Mg) during diuresis * Low-sodium diet and fluid restriction as tolerated * Optimize hypertension and diabetes management * Hypothyroidism: Recommend primary team evaluation for adjustment of levothyroxine therapy * Lifestyle modification: Weight management * Cardiology to follow closely for echo results This medical document was created using an electronic medical record system with voice recognition software and computerized dictation system. Although this document has been carefully reviewed, there might still be some phonetic and typographical errors. Occasional wrong-word or ``sound-alike substitutions may have occurred due to the inherent limitations of voice recognition software. These areas are purely typographical due to imperfections of the software programs and do not reflect any compromise in the patient's medical care. Please read the chart carefully and recognize, using context, where these substitutions have occurred. Plan discussed with: Patient Plan discussed with: Patient NYHA Physical activity limitations: Class3(Marked) ordinary Date of Service: Apr 01, 2025 Billing Provider: SHANE MURPHY MD Cardiology Common Codes: CONSULT ONLY Cardiology Consultation Codes: [id number] CONSULT <45MIN SERA VANCE [employer] HEL[employer] Apr 01, 2025 17:47
[2025-04-01] MEDS ORDERED: LEVO200T7 PO (18:13)
--- NOTE | 2025-04-01 23:39 | DVHINCON2 ---
Date Seen: Apr 01, 2025 Referring Physician WILDER Emery Reason for Consultation Acute CHF History of Present Illness This is a 79-year-old Albanian-speaking female with a past medical history of hypertension, diabetes mellitus, CVA, hypothyroidism, and obesity presents to the ED with progressive bilateral lower extremity swelling for three weeks, associated with shortness of breath, dyspnea on exertion, and orthopnea. She denies chest pain, palpitations, syncope, or prior history of congestive heart failure or atrial fibrillation. On exam, patient reports worsening shortness of breath and has +3 bilateral pitting edema. Twelve lead EKG showed atrial fibrillation at a controlled ventricular rate. BNP was elevated at 457. Chest x- ray shows cardiomegaly. The primary team initiated carvedilol, Eliquis, and IV Lasix. Echocardiogram is pending. Patient was admitted to the hospital. I am asked to consult on this patient. Past Medical History As stated in HPI Past Surgical History Cholecystectomy Allergies: Coded Allergies: NO KNOWN ALLERGIES (Unverified , 03/11/19) Home Meds Active Scripts Furosemide (Lasix) 40 Mg Tab, 40 MG PO DAILY, #30 TAB Prov:COREYGURDEEP Masood DO 03/10/23 Reported Medications Levothyroxine Sodium (Levothyroxine Sodium) 200 Mcg Tab, 1 TAB PO DAILY 04/01/25 Current Medications Current Medications Medications (Trade) Dose Ordered Sig/Thony Route PRN Reason Start Time Stop Time Status Last Admin Furosemide (Lasix Injection) 40 mg BID IV 04/01/25 10:00 04/01/25 09:16 Losartan Potassium (Cozaar Tablet) 50 mg DAILY PO 04/01/25 10:00 04/01/25 09:18 Enoxaparin Sodium (Lovenox) 90 mg Q12HR SC 04/01/25 01:00 04/01/25 01:23 DC Pantoprazole Sodium (Protonix Tablet) 40 mg DAILY PO 04/01/25 10:00 04/01/25 09:17 Ceftriaxone Sodium 50 ml @ 100 mls/hr DAILY IV 04/01/25 10:00 04/01/25 09:16 Azithromycin 250 ml @ 125 mls/hr DAILY IV 04/01/25 10:00 04/01/25 10:49 Apixaban (Eliquis) 5 mg BID PO 04/01/25 10:00 04/01/25 09:17 Atorvastatin Calcium (Lipitor) 40 mg DAILY PO 04/01/25 10:00 04/01/25 09:18 Carvedilol (Coreg Tablet) 3.125 mg Q12HR PO 04/01/25 10:00 04/01/25 10:52 Patient Own Medication 1 tab DAILY PO 04/02/25 10:00 UNV Review of Systems Constitutional: No symptom reported Ears, Nose, & Throat: No symptom reported Eyes: No symptom reported Neurological: No symptoms reported Pulmonary/Respiratory: Shortness of breath, orthopnea, no cough Cardiovascular: Bilateral leg swelling, dyspnea. Denies chest pain, palpitations, or syncope. Gastrointestinal: No symptom reported Genitourinary: No symptom reported Musculoskeletal: No symptom reported Skin: No symptom reported Psychiatric: No symptom reported Endocrine: No symptom reported Hemotologic/Lymphatic: No symptom reported Vital Signs Vital Signs Date Time Temp Pulse Resp B/P (MAP) Pulse Ox O2 Delivery O2 Flow Rate FiO2 04/01/25 17:00 97.1 85 17 122/81 (95) 95 97.1 04/01/25 09:00 Room Air* 0 21 Physical Exam GENERAL: Alert and oriented x 3. No acute distress. EYES: PERRL, EOMI. Anicteric. HENT: Moist mucous membranes. LUNGS: Bibasilar crackles. CARDIOVASCULAR: Irregular rate and rhythm. ABDOMEN: Soft, nontender and nondistended. EXTREMITIES: bilateral lower extremity 3+ pitting edema, NEUROLOGIC: No focal neurological deficits. SKIN: Warm, dry. Labs/Diagnostic Data Labs Test 04/01/25 04:52 04/01/25 03:30 03/31/25 21:02 03/31/25 18:29 Range/Units White Blood Count 7.8 4.4-10.8 10^3/uL Red Blood Count 3.91 L 4.0-5.20 10^6/uL Hemoglobin 11.8 L 12.2-16.2 g/dL Hematocrit 35.2 L 36.0-46.0 % Mean Corpuscular Volume 90.0 80.0-100.0 fL Mean Corpuscular Hemoglobin 30.2 28.0-32.0 pg Mean Corpuscular Hemoglobin Concent 33.5 32.0-36.0 g/dL Red Cell Distribution Width 13.6 11.8-14.3 % Platelet Count 244 140-450 10^3/uL Mean Platelet Volume 7.5 6.9-10.8 fL Neutrophils (%) (Auto) 77.6 37.0-80.0 % Lymphocytes (%) (Auto) 12.6 10.0-50.0 % Monocytes (%) (Auto) 7.2 0.0-12.0 % Eosinophils (%) (Auto) 2.0 0.0-7.0 % Basophils (%) (Auto) 0.6 0.0-2.0 % Neutrophils # (Auto) 6.0 1.6-8.6 10 ^3/uL Lymphocytes # (Auto) 1.0 0.4-5.4 10 ^3/uL Monocytes # (Auto) 0.6 0-1.3 10 ^3/uL Eosinophils # (Auto) 0.2 0-0.8 10 ^3/uL Basophils # (Auto) 0 0-0.2 10 ^3/uL Nucleated Red Blood Cells 0.1 % Sodium Level 141 136-145 mmol/L Potassium Level 3.6 3.5-5.1 mmol/L Chloride Level 100 98-107 mmol/L Carbon Dioxide Level 32 H 20-31 mmol/L Anion Gap 9 5-15 Blood Urea Nitrogen 23 9-23 mg/dL Creatinine 1.14 H 0.550-1.02 mg/dL Glomerular Filtration Rate Calc 49 >90 mL/min BUN/Creatinine Ratio 20.2 H 10.0-20.0 Serum Glucose 97 74-106 mg/dL Hemoglobin A1c 5.9 H <5.7 % A1C Calcium Level 9.1 8.7-10.4 mg/dL Triglycerides Level 86 < 150 mg/dL Cholesterol Level 133 < 200 mg/dL LDL Cholesterol 93 < 100 mg/dL HDL Cholesterol 36 L 40-59 mg/dL Thyroid Stimulating Hormone (TSH) 8.47 H 0.55-4.78 uIU/mL Free Thyroxine (T4) Calculated 0.87 L 0.89-1.76 ng/dL Influenza Type A Antigen Negative Negative Influenza Type B Antigen Negative Negative SARS-CoV-2 Antigen (Rapid) Negative NEGATIVE Urine Color Yellow Yellow Urine Clarity Clear Clear Urine pH 6.5 5.0-9.0 Urine Specific [place] 1.025 1.001-1.035 Urine Protein Negative Negative Urine Ketones Negative Negative Urine Blood Negative Negative /uL Urine Nitrite 1+ H Negative Urine Bilirubin Negative Negative Urine Urobilinogen 2 H Negative mg/dL Urine Leukocyte Esterase 2+ Negative /uL Urine RBC 2 0 - 4 /hpf Urine Microscopic WBC 12 H 0-5 /HPF Urine Squamous Epithelial Cells Few <5 /hpf Urine Bacteria Many H None Seen /hpf Urine Hyaline Casts Few 0 - 2 /lpf Urine Mucus Few None Seen Urine Glucose Normal Normal mg/dL Urine Opiates Screen Neg NEGATIVE Urine Fentanyl Screen Neg NEGATIVE Urine Barbiturates Screen Neg NEGATIVE Urine Phencyclidine Screen Neg NEGATIVE Urine Amphetamines Screen Neg NEGATIVE Urine Benzodiazepines Screen Neg NEGATIVE Urine Cocaine Screen Neg NEGATIVE Urine Cannabinoids Screen Neg NEGATIVE Troponin I High Sensitivity 21 </=34 ng/L Test 03/31/25 16:47 Range/Units Lactic Acid Level 0.9 0.4-2.0 mmol/L Total Bilirubin 0.6 0.2-1.0 mg/dL Aspartate Amino Transferase (AST) 20 13-40 U/L Alanine Aminotransferase (ALT) 17 7-40 U/L Alkaline Phosphatase 77 46-116 U/L B-Type Natriuretic Peptide 457.09 0-100 pg/mL Total Protein 6.8 5.7-8.2 g/dL Albumin 4.1 3.2-4.8 g/dL Lipase 26 12-53 U/L Assessment Rule out systolic and diastolic heart failure. New onset Atrial fibrillation, controlled rate ( CHADS-VASc score 7, HAS-BLED score 3) . Hypertension. Dyslipidemia. Hypothyroidism. Obesity. UTI. Plan/Recommendation I agree with your ongoing assessment and care of plan. Patient has been seen by Pat Weir NP on my behalf, her and I discussed the plan with the patient. Continue rate control with carvedilol. Anticoagulation: Continue Eliquis for stroke prevention in AFib, monitor renal function and bleeding risk. Diuresis: Continue IV Lasix, monitor I/O, daily weights, electrolytes, renal function. Echocardiogram pending--assess EF, diastolic function, and valvular disease. Monitor electrolytes (K, Mg) during diuresis. Low-sodium diet and fluid restriction as tolerated. Optimize hypertension and diabetes management. Hypothyroidism: Recommend primary team evaluation for adjustment of levothyroxine therapy. Lifestyle modification: Weight management. Cardiology to follow closely for echo results. Additional plan as per the hospital course. Plan discussed with: Patient NYHA Physical activity limitations: Class3(Marked) ordinary Date of Service: Apr 01, 2025 Billing Provider: SHANE FRY MD Cardiology Common Codes: [id number] INP/OBS CARE (High) Cardiology Consultation Codes: [id number] CONSULT <45MIN SHANE FRY MD Apr 01, 2025 18:15
[2025-04-02] VITALS (8 sets, daily range): BP systolic 94–143; BP diastolic 58–87; PULSE 73–91; RESP 16–24; TEMP 97.2–98.5; O2SAT 96–98
--- NOTE | 2025-04-02 03:04 | DVHSR ---
APPROVED REPORT EXAM: LIMITED Two-dimensional and M-mode echocardiogram with Doppler and color Doppler. Blood Pressure: 142/92 mmHg INDICATION New onset CHF RISK FACTORS Obesity: Height: 5' 4", Weight: 194 DIMENSIONS LVDd5.7 (3.8-5.7cm)LA (2D)4.4 (1.9-4.0cm)Aortic Root3.3 (2.0-3.7cm) LVDs5.3 (2.5-4.0cm)LA (MM) (1.9-4.0cm)Aortic Cusp Exc1.5 (1.5-2.0cm) EF (%) 15.0 (55-70%)Rt. Atrium4.0 (1.9-4.0cm)Asc. Aorta cm IVSd1.1 (0.7-1.1cm)RV (D) (1.8-2.4cm) PWd1.0 (0.7-1.1cm) Mitral Valve MitralMitral Stenosis E wave1.20m/sMV Mean GR.mmHg A wave0.50m/sMV Peak GR.mmHg E/A ratio2.42D MVAcm2 Aortic Valve Aortic ValveAortic Stenosis V10.70m/[place] Mean GR.6mmHg V21.70m/[place] Peak GR.13mmHg LVOT Diameter2.2 (1.8-2.4cm)Doppler AVA1.56cm2 Pulmonic Valve V20.90m/s Tricuspid Valve TR Velocity2.60m/s [id number] Conclusion DILATED ALL CARDIAC CHAMBERS SEVERE GLOBAL HYPOKINESIS OF ALL CARDIAC CHAMBERS LV EF IS ONLY 15% SEVERE CALCIFICATION OF POSTERIOR MITRAL LEAFLET WITH DECREASED EXCURSION AORTIC SCLEROSIS NO EFFUSION FINDINGS CONSISTENT WITH DILATED CARDIOMYOPATHY PULMONARY HYPERTENSION RVSP IS 38 MM OF HG AND IS HIGH
[2025-04-02] MEDS: LEVOTHYROXINE SODIUM 100 MCG TAB PO SCH (05:40)
[2025-04-02] MEDS ORDERED: LEVOTHYROXINE SODIUM 50 MCG TAB PO SCH (06:00)
[2025-04-02] MEDS: HYDROcodone-ACET 5/325MG TAB PO PRN (06:16)
--- NOTE | 2025-04-02 08:11 | DVHPN2 ---
Subjective Denies cardiac events Denies chest pain or shortness of breath Reports bilateral lower extremity swelling has decreased Reviewed: Care Plan, H&P, Labs, Medications, Previous Orders Changes from previous H/P or p: No Changes General: Per HPI Eyes: No Pain, No Vision change, No Conjunctivae inflammation, No Eyelid inflammation, No Other, No Redness ENT: No Ear pain, No Ear discharge, No Nose pain, No Nose discharge, No Nose congestion, No Mouth pain, No Mouth swelling, No Throat pain, No Throat swelling, No Other Cardiovascular: No Chest Pain, No Palpitations; Orthopnea; No Paroxysmal Noc. Dyspnea; Edema; No Lt Headedness, No Other Respiratory: No Cough, No Dry, No Shortness of breath, No SOB with excertion, No Wheezing, No Hemoptysis, No Pleuritic Pain, No Sputum, No Other Gastrointestinal: No Nausea, No Vomiting, No Abdominal Pain, No Diarrhea, No Constipation, No Melena, No Hematochezia, No Other Genitourinary: No Dysuria, No Frequency, No Incontinence, No Hematuria, No Retention, No Other Musculoskeletal: No other, No neck pain, No shoulder pain, No arm pain, No back pain, No hand pain, No leg pain, No foot pain Skin: No Rash, No Lesions, No Jaundice, No Bruising, No Other Objective Vitals Vital Signs Date Time Temp Pulse Resp B/P (MAP) Pulse Ox O2 Delivery O2 Flow Rate FiO2 04/02/25 07:59 Room Air* 0 21 04/02/25 05:00 97.7 85 24 126/67 (86) 97 97.7 Intake/Output Intake and Output 04/02/25 07:00 Intake Total 1792 ml Output Total 1750 ml Balance 42 ml Intake Oral 1212 ml IV Total 550 ml Other 30 ml Output Urine Total 1750 ml # Voids 4 # Bowel Movements 1 General Appearance: Alert, Oriented X3, Cooperative, mild distress HEENT: Atraumatic, PERRLA Cardiovascular: Normal S1, Normal S2 Genitourinary: No Apparent Abnormalities Extremities: No clubbing, No cyanosis, Other (Plus three pitting edema to bilateral lower extremities) Neuro: Normal gait, Normal speech Skin: Dry, Intact Psych/Mental Status: Mental status NL, Mood NL Medications Current Medications Medications Dose Ordered Sig/Thony Route Start Time Stop Time Status Last Admin Dose Admin Furosemide 40 mg BID IV 04/01/25 10:00 04/01/25 21:36 40 MG Losartan Potassium 50 mg DAILY PO 04/01/25 10:00 04/01/25 09:18 50 MG Pantoprazole Sodium 40 mg DAILY PO 04/01/25 10:00 04/01/25 09:17 40 MG Ceftriaxone Sodium 50 ml @ 100 mls/hr DAILY IV 04/01/25 10:00 04/01/25 09:16 100 MLS/HR Azithromycin 250 ml @ 125 mls/hr DAILY IV 04/01/25 10:00 04/01/25 10:49 125 MLS/HR Apixaban 5 mg BID PO 04/01/25 10:00 04/01/25 21:35 5 MG Atorvastatin Calcium 40 mg DAILY PO 04/01/25 10:00 04/01/25 09:18 40 MG Carvedilol 3.125 mg Q12HR PO 04/01/25 10:00 04/01/25 21:35 3.125 MG Levothyroxine Sodium 200 mcg QAM@0600 PO 04/02/25 06:00 04/02/25 05:40 200 MCG Levothyroxine Sodium 50 mcg QAM@0600 PO 04/02/25 06:00 Cancel Acetaminophen/ Hydrocodone Bitart 1 tab Q6HPRN PRN PO 04/02/25 06:00 04/02/25 06:16 1 TAB Laboratory Results Laboratory Tests 04/01/25 04:52 Chemistry Test 04/02/25 05:35 Calcium Level Pending Magnesium Level Pending Cardiac Markers Test 04/02/25 05:35 B-Type Natriuretic Peptide Pending Urinalysis Test 03/31/25 21:02 Urine Color Yellow (Yellow) Urine Clarity Clear (Clear) Urine pH 6.5 (5.0-9.0) Urine Specific [place] 1.025 (1.001-1.035) Urine Protein Negative (Negative) Urine Ketones Negative (Negative) Urine Blood Negative /uL (Negative) Urine Nitrite 1+ (Negative) H Urine Bilirubin Negative (Negative) Urine Urobilinogen 2 mg/dL (Negative) H Urine Leukocyte Esterase 2+ /uL (Negative) Urine RBC 2 /hpf (0 - 4) Urine Microscopic WBC 12 /HPF (0-5) H Urine Squamous Epithelial Cells Few /hpf (<5) Urine Bacteria Many /hpf (None Seen) H Urine Hyaline Casts Few /lpf (0 - 2) Urine Mucus Few (None Seen) Urine Glucose Normal mg/dL (Normal) Microbiology Microbiology Date/Time Source Procedure Growth Status 04/01/25 01:22 Blood Blood Culture - Preliminary NO GROWTH AFTER 24 HOURS OF INCUBATION. Resulted Assessment/Plan Assessment/Plan HFrEF, new onset Related cardiomyopathy Pulmonary hypertension New onset Atrial fibrillation, controlled rate ( CHADS-VASc score 7, HAS-BLED score 3) Rule out progressive CAD Hypertension Dyslipidemia Hypothyroidism Obesity UTI Plan/Recommendation (Dr. Fry ): Newly diagnosed severe systolic dysfunction (EF 15%), dilated cardiomyopathy, and pulmonary hypertension (RVSP 38 mmHg) on echocardiogram. She has a reported history of CAD with stents placed over [address] Elida Fry evaluated the patient at bedside and advised follow-up in his offie this week. Continue GDMT for HF. Plan discussed with: Patient My Orders Orders - SERA VANCE Procedure Category Date Status Time Daily Weight YULIANA 04/01/25 In Process 18:08 Strict I & O YULIANA 04/01/25 In Process 18:08 B-Type Natriuretic LAB 04/02/25 In Process Peptide 04:00 Levothyroxine Tablet PHA 04/02/25 In Process (Synthroid Tablet) 06:00 Magnesium Ernie PHA 04/02/25 Transmitted 09:00 Date of Service: Apr 02, 2025 Billing Provider: SHANE FRY MD Common Visit Codes: CONSULT ONLY Consultation Codes: [id number] CONSULT <45MIN SERA VANCE Apr 02, 2025 08:11
[2025-04-02 08:23] LABS: Sodium 140 mmol/L (136-145)
[2025-04-02 08:24] LABS: Anion Gap 9 (5-15)
[2025-04-02 08:25] LABS: Calcium 9.0 mg/dL (8.7-10.4)
[2025-04-02 08:29] LABS: BUN/Creatinine Ratio 25.7 (10.0-20.0); Glucose 100 mg/dL (74-106)
[2025-04-02 08:30] LABS: Magnesium 1.9 mg/dL (1.6-2.6)
[2025-04-02 08:32] LABS: Blood Urea Nitrogen 28 mg/dL (9-23); Carbon Dioxide 33 mmol/L (20-31); Chloride 98 mmol/L (98-107); Potassium 3.4 mmol/L (3.5-5.1)
[2025-04-02] MEDS: MAGNESIUM SULFATE 1GM/100ML 100 ML IV SCH (09:13)
--- NOTE | 2025-04-02 10:55 | DVHPN2 ---
Subjective Denies any chest discomfort today. Reports having swelling of her lower extremities. Reviewed: Care Plan, H&P, Labs, Medications, Previous Orders Changes from previous H/P or p: No Changes General: Per HPI Eyes: No Pain, No Vision change, No Conjunctivae inflammation, No Eyelid inflammation, No Other, No Redness ENT: No Ear pain, No Ear discharge, No Nose pain, No Nose discharge, No Nose congestion, No Mouth pain, No Mouth swelling, No Throat pain, No Throat swelling, No Other Cardiovascular: No Chest Pain, No Palpitations; Orthopnea; No Paroxysmal Noc. Dyspnea; Edema; No Lt Headedness, No Other Respiratory: No Cough, No Dry, No Shortness of breath, No SOB with excertion, No Wheezing, No Hemoptysis, No Pleuritic Pain, No Sputum, No Other Gastrointestinal: No Nausea, No Vomiting, No Abdominal Pain, No Diarrhea, No Constipation, No Melena, No Hematochezia, No Other Genitourinary: No Dysuria, No Frequency, No Incontinence, No Hematuria, No Retention, No Other Musculoskeletal: No other, No neck pain, No shoulder pain, No arm pain, No back pain, No hand pain, No leg pain, No foot pain Skin: No Rash, No Lesions, No Jaundice, No Bruising, No Other Objective Vitals Vital Signs Date Time Temp Pulse Resp B/P (MAP) Pulse Ox O2 Delivery O2 Flow Rate FiO2 04/02/25 09:19 124/76 04/02/25 09:18 73 04/02/25 08:41 97.4 18 97 97.4 04/02/25 07:59 Room Air* 0 21 Intake/Output Intake and Output 04/02/25 07:00 Intake Total 1792 ml Output Total 1750 ml Balance 42 ml Intake Oral 1212 ml IV Total 550 ml Other 30 ml Output Urine Total 1750 ml # Voids 4 # Bowel Movements 1 General Appearance: Alert, Oriented X3, Cooperative, mild distress HEENT: Atraumatic, PERRLA Cardiovascular: Normal S1, Normal S2 Genitourinary: No Apparent Abnormalities Extremities: No clubbing, No cyanosis, Other (Plus three pitting edema to bilateral lower extremities) Neuro: Normal gait, Normal speech Skin: Dry, Intact Psych/Mental Status: Mental status NL, Mood NL Medications Current Medications Medications Dose Ordered Sig/Thony Route Start Time Stop Time Status Last Admin Dose Admin Furosemide 40 mg BID IV 04/01/25 10:00 04/02/25 09:19 40 MG Losartan Potassium 50 mg DAILY PO 04/01/25 10:00 04/02/25 09:18 50 MG Pantoprazole Sodium 40 mg DAILY PO 04/01/25 10:00 04/02/25 09:18 40 MG Ceftriaxone Sodium 50 ml @ 100 mls/hr DAILY IV 04/01/25 10:00 04/02/25 09:14 100 MLS/HR Azithromycin 250 ml @ 125 mls/hr DAILY IV 04/01/25 10:00 04/02/25 09:13 125 MLS/HR Atorvastatin Calcium 40 mg DAILY PO 04/01/25 10:00 04/02/25 09:17 40 MG Carvedilol 3.125 mg Q12HR PO 04/01/25 10:00 04/02/25 09:18 3.125 MG Levothyroxine Sodium 200 mcg QAM@0600 PO 04/02/25 06:00 04/02/25 05:40 200 MCG Levothyroxine Sodium 50 mcg QAM@0600 PO 04/02/25 06:00 Cancel Acetaminophen/ Hydrocodone Bitart 1 tab Q6HPRN PRN PO 04/02/25 06:00 04/02/25 06:16 1 TAB Magnesium Sulfate/ Dextrose 100 ml @ 100 mls/hr Q1HR IV 04/02/25 09:00 04/02/25 10:59 04/02/25 09:13 100 MLS/HR Laboratory Results Laboratory Tests 04/01/25 04:52 04/02/25 05:35 Chemistry Test 04/02/25 05:35 Calcium Level 9.0 mg/dL (8.7-10.4) Magnesium Level 1.9 mg/dL (1.6-2.6) Cardiac Markers Test 04/02/25 05:35 B-Type Natriuretic Peptide 249.39 pg/mL (0-100) Urinalysis Test 03/31/25 21:02 Urine Color Yellow (Yellow) Urine Clarity Clear (Clear) Urine pH 6.5 (5.0-9.0) Urine Specific [place] 1.025 (1.001-1.035) Urine Protein Negative (Negative) Urine Ketones Negative (Negative) Urine Blood Negative /uL (Negative) Urine Nitrite 1+ (Negative) H Urine Bilirubin Negative (Negative) Urine Urobilinogen 2 mg/dL (Negative) H Urine Leukocyte Esterase 2+ /uL (Negative) Urine RBC 2 /hpf (0 - 4) Urine Microscopic WBC 12 /HPF (0-5) H Urine Squamous Epithelial Cells Few /hpf (<5) Urine Bacteria Many /hpf (None Seen) H Urine Hyaline Casts Few /lpf (0 - 2) Urine Mucus Few (None Seen) Urine Glucose Normal mg/dL (Normal) Microbiology Microbiology Date/Time Source Procedure Growth Status 04/01/25 01:22 Blood Blood Culture - Preliminary NO GROWTH AFTER 24 HOURS OF INCUBATION. Resulted Labs and/or images reviewed: Labs reviewed by me, Image(s) reviewed by me Assessment/Plan Assessment/Plan Impression: -acute decompensated heart failure, probable diastolic -prediabetes -primary hypertension -atrial fibrillation -dyslipidemia -Hypothyroidism -obesity Plan: Events: Echocardiogram reveals four-chamber dilatation with ejection fraction 15%. Plans for left heart catheterization in a.m. -stop Eliquis -guideline directed medical therapy: Continue carvedilol, losartan, add spironolactone, continue IV Lasix -patient placed on Eliquis for atrial fibrillation by admitting hospitalist. Continue until seen by Cardiology -cardiology consultation -continue thyroid supplementation -repeat labs in a.m. Total time spent with patient discussing and formulating plan of care: 35 minutes. This medical document was created using an electronic medical record system with [employer] dictation system. Although this document has been carefully reviewed, there may still be some phonetic and typographical errors. These areas are purely typographical due to imperfections of the software programs, and do not reflect any compromise in the patient's medical care. Plan discussed with: Patient, Other (RN) My Orders Orders - REY LUCAS NP Procedure Category Date Status Time Potassium Effervesent PHA 04/02/25 In Process Tab (Klor-Con/Ef) 11:00 Date of Service: Apr 02, 2025 Billing Provider: REY LUCAS NP Common Visit Codes: [id number] INP/OBS CARE(HIGH) REY LUCAS NP Apr 02, 2025 10:55
[2025-04-02] MEDS: POTASSIUM EFFERVESENT TAB 25 MEQ PO ONE (11:56)
[2025-04-02] MEDS: SPIRONOLACTONE 25 MG TAB PO SCH (11:56)
[2025-04-02 13:08] LABS: INR 1.05 (0.9-1.15); Partial Thromboplastin Time 27.2 SEC (24.5-34.5); Prothrombin Time 11.1 sec (9.3-11.8)
[2025-04-02] MEDS: ONDANSETRON HCL 4 MG/2 ML VIAL IV PRN (13:37)
[2025-04-02 14:56] LABS: INR 1.05 (0.9-1.15); Partial Thromboplastin Time 26.5 SEC (24.5-34.5); Prothrombin Time 11.1 sec (9.3-11.8)
[2025-04-02] MEDS: DOCUSATE SOD 100 MG CAP PO SCH (21:23)
[2025-04-02] MEDS: SACUBITRIL-VALSARTAN 24mg/26mg TAB PO SCH (21:23)
[2025-04-02] MEDS: APIXABAN 5 MG TAB PO SCH (21:23)
--- NOTE | 2025-04-02 23:47 | DVHPN2 ---
Consult Progress Note Subjective Other Systems: Patient was seen and evaluated in follow up. Patient denies any cardiac events such as chest pain or shortness of breath. Patient reports his bilateral lower extremity swelling has decreased. 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 Telemetry reviewed. Objective vital signs Vital Sign Date Time Temp Pulse Resp B/P (MAP) Pulse Ox O2 Delivery O2 Flow Rate FiO2 04/02/25 13:00 97.2 74 18 94/58 (70) 96 97.2 04/02/25 07:59 Room Air* 0 21 Total Intake and Output 04/01/25 04/01/25 04/02/25 15:00 23:00 07:00 Intake Total 934 ml 118 ml 740 ml Output Total 1750 ml Balance 934 ml 118 ml -1010 ml medications Current Medications Medications Dose Ordered Sig/Thony Route Start Time Stop Time Status Last Admin Dose Admin Furosemide 40 mg BID IV 04/01/25 10:00 04/02/25 09:19 40 MG Losartan Potassium 50 mg DAILY PO 04/01/25 10:00 04/02/25 09:18 50 MG Pantoprazole Sodium 40 mg DAILY PO 04/01/25 10:00 04/02/25 09:18 40 MG Ceftriaxone Sodium 50 ml @ 100 mls/hr DAILY IV 04/01/25 10:00 04/02/25 09:14 100 MLS/HR Atorvastatin Calcium 40 mg DAILY PO 04/01/25 10:00 04/02/25 09:17 40 MG Carvedilol 3.125 mg Q12HR PO 04/01/25 10:00 04/02/25 09:18 3.125 MG Levothyroxine Sodium 200 mcg QAM@0600 PO 04/02/25 06:00 04/02/25 05:40 200 MCG Levothyroxine Sodium 50 mcg QAM@0600 PO 04/02/25 06:00 Cancel Acetaminophen/ Hydrocodone Bitart 1 tab Q6HPRN PRN PO 04/02/25 06:00 04/02/25 06:16 1 TAB Spironolactone 25 mg DAILY PO 04/02/25 11:02 04/02/25 11:56 25 MG Sodium Chloride 1,000 ml @ 0 mls/hr Q0M IV 04/03/25 00:15 Ondansetron HCl 4 mg Q6HPRN PRN IV 04/02/25 13:15 Examination: GENERAL:Normal, HEENT:Normal, NECK:Normal, LUNGS:Normal, CVS:Normal, ABDOMEN:Normal, MSK:Abnormal laboratory and microbiology Laboratory Tests 04/02/25 05:35 04/01/25 04:52 Test 04/02/25 05:35 Range/Units Serum Glucose 100 74-106 mg/dL Problem List/Assessment/Plan Problem List/Assessment/Plan Assessment HFrEF, new onset. Related cardiomyopathy. Pulmonary hypertension. New onset Atrial fibrillation, controlled rate ( CHADS-VASc score 7, HAS-BLED score 3). Rule out progressive CAD. Hypertension. Dyslipidemia. Hypothyroidism. Obesity. UTI. Plan/Recommendation Continued all current supportive medical care. Patient has been seen by Pat Weir NP on my behalf, her and I discussed the plan with the patient. Newly diagnosed severe systolic dysfunction (EF 15%), dilated cardiomyopathy, and pulmonary hypertension (RVSP 38 mmHg) on echocardiogram. She has a reported history of CAD with stents placed over 20 years ago. The etiology of her cardiomyopathy to is unclear--likely ischemic versus nonischemic --and left heart catheterization is planned to evaluate for active coronary artery disease. She is currently on Eliquis, which has been held in preparation for the procedure. [place]ic RN grades 9 thru 12 visiting teacher used to ensure all understanding. The patient informed of the procedure purpose, risks including bleeding, vascular injury, stroke, OK, and benefits explained well with the patient. Patient gave informed consent to proceed with [facility]. Additional plan as per the hospital course. Plan discussed with: Patient Date of Service: Apr 02, 2025 Billing Provider: SHANE FRY MD Cardiology Common Codes: [id number] [facility] CARE(High SHANE FRY MD Apr 02, 2025 13:37
[2025-04-03] VITALS (9 sets, daily range): BP systolic 90–126; BP diastolic 48–73; PULSE 69–95; RESP 16–18; TEMP 97.4–98; O2SAT 94–100
[2025-04-03] MEDS ORDERED: SODIUM CHLORIDE 0.9% 1,000 ML IV SCH (00:15)
[2025-04-03 07:30] LABS: Anion Gap 9 (5-15); Potassium 3.9 mmol/L (3.5-5.1); Sodium 137 mmol/L (136-145)
[2025-04-03 07:31] LABS: Calcium 8.8 mg/dL (8.7-10.4)
[2025-04-03 07:36] LABS: BUN/Creatinine Ratio 17.4 (10.0-20.0); Magnesium 2.3 mg/dL (1.6-2.6)
[2025-04-03 07:38] LABS: Blood Urea Nitrogen 26 mg/dL (9-23); Carbon Dioxide 34 mmol/L (20-31); Chloride 94 mmol/L (98-107); Glucose 134 mg/dL (74-106)
--- NOTE | 2025-04-03 07:52 | ECG ---
[facility] Test Date: 2025-04-02 Test Time: 12:51:23 Pat Name: PADMA GILES Department: Room: 0237T Gender: F Concessionist: : [id number] Requested By: REY LUCAS Order Number: [id number] Reading MD: Car [place] Measurements Intervals Trail Rate: 76 P: 0 SD: 0 QRS: -47 QRSD: 133 T: 81 QT: 432 QTc: 486 Interpretive Statements Atrial fibrillation LVH with IVCD, LAD and secondary repol abnrm Inferior infarct, old Electronically Signed On 04-03-2025 22:17:34 PDT by Car [place] Please click the below link to view image of tracing.
--- NOTE | 2025-04-03 11:48 | DVHPN2 ---
Subjective Denies any chest discomfort today. Reports having swelling of her lower extremities. Reviewed: Care Plan, H&P, Labs, Medications, Previous Orders Changes from previous H/P or p: No Changes General: Per HPI Eyes: No Pain, No Vision change, No Conjunctivae inflammation, No Eyelid inflammation, No Other, No Redness ENT: No Ear pain, No Ear discharge, No Nose pain, No Nose discharge, No Nose congestion, No Mouth pain, No Mouth swelling, No Throat pain, No Throat swelling, No Other Cardiovascular: No Chest Pain, No Palpitations; Orthopnea; No Paroxysmal Noc. Dyspnea; Edema; No Lt Headedness, No Other Respiratory: No Cough, No Dry, No Shortness of breath, No SOB with excertion, No Wheezing, No Hemoptysis, No Pleuritic Pain, No Sputum, No Other Gastrointestinal: No Nausea, No Vomiting, No Abdominal Pain, No Diarrhea, No Constipation, No Melena, No Hematochezia, No Other Genitourinary: No Dysuria, No Frequency, No Incontinence, No Hematuria, No Retention, No Other Musculoskeletal: No other, No neck pain, No shoulder pain, No arm pain, No back pain, No hand pain, No leg pain, No foot pain Skin: No Rash, No Lesions, No Jaundice, No Bruising, No Other Objective Vitals Vital Signs Date Time Temp Pulse Resp B/P (MAP) Pulse Ox O2 Delivery O2 Flow Rate FiO2 04/03/25 09:42 81 93/42 04/03/25 08:36 97.9 16 100 97.9 04/02/25 20:00 Nasal Cannula* 2 28 Intake/Output Intake and Output 04/03/25 07:00 Intake Total 1080 ml Output Total 1500 ml Balance -420 ml Intake Oral 830 ml IV Total 250 ml Output Urine Total 1500 ml # Bowel Movements 1 General Appearance: Alert, Oriented X3, Cooperative, mild distress HEENT: Atraumatic, PERRLA Cardiovascular: Normal S1, Normal S2 Genitourinary: No Apparent Abnormalities Extremities: No clubbing, No cyanosis, Other (Plus three pitting edema to bilateral lower extremities) Neuro: Normal gait, Normal speech Skin: Dry, Intact Psych/Mental Status: Mental status NL, Mood NL Medications Current Medications Medications Dose Ordered Sig/Thony Route Start Time Stop Time Status Last Admin Dose Admin Furosemide 40 mg BID IV 04/01/25 10:00 04/03/25 09:42 40 MG Losartan Potassium 50 mg DAILY PO 04/01/25 10:00 Hold 04/02/25 09:18 50 MG Pantoprazole Sodium 40 mg DAILY PO 04/01/25 10:00 04/03/25 09:41 40 MG Ceftriaxone Sodium 50 ml @ 100 mls/hr DAILY IV 04/01/25 10:00 04/03/25 09:41 100 MLS/HR Atorvastatin Calcium 40 mg DAILY PO 04/01/25 10:00 04/03/25 09:41 40 MG Carvedilol 3.125 mg Q12HR PO 04/01/25 10:00 04/03/25 09:42 3.125 MG Levothyroxine Sodium 200 mcg QAM@0600 PO 04/02/25 06:00 04/03/25 05:37 200 MCG Levothyroxine Sodium 50 mcg QAM@0600 PO 04/02/25 06:00 Cancel Acetaminophen/ Hydrocodone Bitart 1 tab Q6HPRN PRN PO 04/02/25 06:00 04/03/25 09:54 1 TAB Spironolactone 25 mg DAILY PO 04/02/25 11:02 04/03/25 09:41 25 MG Sodium Chloride 1,000 ml @ 0 mls/hr Q0M IV 04/03/25 00:15 Ondansetron HCl 4 mg Q6HPRN PRN IV 04/02/25 13:15 04/02/25 13:37 4 MG Apixaban 5 mg BID PO 04/02/25 22:00 04/03/25 09:41 5 MG Sacubitril/ Valsartan 1 tab BID PO 04/02/25 22:00 04/03/25 09:41 1 TAB Docusate Sodium 100 mg BID PO 04/02/25 22:00 04/03/25 09:41 100 MG Laboratory Results Laboratory Tests 04/01/25 04:52 04/03/25 06:06 Chemistry Test 04/03/25 06:06 Calcium Level 8.8 mg/dL (8.7-10.4) Magnesium Level 2.3 mg/dL (1.6-2.6) Coagulation Test 04/02/25 12:07 04/02/25 14:24 Prothrombin Time 11.1 sec (9.3-11.8) 11.1 sec (9.3-11.8) Prothrombin Time INR 1.05 (0.9-1.15) 1.05 (0.9-1.15) Activated Partial Thromboplast Time 27.2 SEC (24.5-34.5) 26.5 SEC (24.5-34.5) Cardiac Markers Test 04/03/25 06:06 B-Type Natriuretic Peptide 339.47 pg/mL (0-100) Urinalysis Test 03/31/25 21:02 Urine Color Yellow (Yellow) Urine Clarity Clear (Clear) Urine pH 6.5 (5.0-9.0) Urine Specific [place] 1.025 (1.001-1.035) Urine Protein Negative (Negative) Urine Ketones Negative (Negative) Urine Blood Negative /uL (Negative) Urine Nitrite 1+ (Negative) H Urine Bilirubin Negative (Negative) Urine Urobilinogen 2 mg/dL (Negative) H Urine Leukocyte Esterase 2+ /uL (Negative) Urine RBC 2 /hpf (0 - 4) Urine Microscopic WBC 12 /HPF (0-5) H Urine Squamous Epithelial Cells Few /hpf (<5) Urine Bacteria Many /hpf (None Seen) H Urine Hyaline Casts Few /lpf (0 - 2) Urine Mucus Few (None Seen) Urine Glucose Normal mg/dL (Normal) Microbiology Microbiology Date/Time Source Procedure Growth Status 04/01/25 01:22 Blood Blood Culture - Preliminary NO GROWTH AFTER 48 HOURS OF INCUBATION. Resulted 03/31/25 21:02 Voided Urine Urine Culture - Preliminary Resulted Labs and/or images reviewed: Labs reviewed by me, Image(s) reviewed by me Assessment/Plan Assessment/Plan Impression: -acute decompensated heart failure, probable diastolic -prediabetes -primary hypertension -atrial fibrillation -dyslipidemia -Hypothyroidism -obesity -complicated cystitis with ESBL in the urine Plan: Events: Left heart catheterization to be held at this time. Patient positive for ESBL in the urine. Patient will be placed back on Eliquis given no plans for LHC. Midline catheter replaced. Patient will have case management consultation for home IV antibiotic therapy -guideline directed medical therapy: Continue carvedilol, losartan, add spironolactone, continue IV Lasix -patient placed on Eliquis for atrial fibrillation by admitting hospitalist. Continue until seen by Cardiology -cardiology consultation -continue thyroid supplementation -repeat labs in a.m. Total time spent with patient discussing and formulating plan of care: 35 minutes. This medical document was created using an electronic medical record system with [employer] dictation system. Although this document has been carefully reviewed, there may still be some phonetic and typographical errors. These areas are purely typographical due to imperfections of the software programs, and do not reflect any compromise in the patient's medical care. Plan discussed with: Patient, Other (RN) My Orders Orders - REY LUCAS NP Procedure Category Date Status Time Ondansetron Hcl PHA 04/02/25 In Process (Zofran) 13:15 Date of Service: Apr 03, 2025 Billing Provider: REY LUCAS NP Common Visit Codes: [id number] INP/OBS CARE(HIGH) REY LUCAS NP Apr 03, 2025 11:48
[2025-04-03] MEDS: ERTAPENEM SOD INJ 1 GM in SODIUM CHL 0.9% 50 ML IV SCH (13:40)
[2025-04-04] VITALS (8 sets, daily range): BP systolic 100–138; BP diastolic 50–85; PULSE 77–89; RESP 18–20; TEMP 97.6–98.9; O2SAT 96–99
--- NOTE | 2025-04-04 00:51 | DVHPN2 ---
Progress Note - Dictate Date Seen: Apr 03, 2025 Medical Necessity Reason Pt with a Central, PICC or Fol: Yes Subjective Patient was seen and evaluated in follow up. Denies any chest discomfort today. Left heart catheterization to be held at this time. Patient positive for ESBL in the urine. Patient will be placed back on Eliquis given no plans for LHC. Midline catheter replaced. Telemetry reviewed. vital signs Vital Sign Date Time Temp Pulse Resp B/P (MAP) Pulse Ox O2 Delivery O2 Flow Rate FiO2 04/03/25 23:14 85 109/78 04/03/25 20:42 98.0 17 99 98.0 04/03/25 20:00 Nasal Cannula* 2 28 Total Intake and Output 04/03/25 04/03/25 04/04/25 15:00 23:00 07:00 Intake Total 50 ml 850 ml Output Total 900 ml Balance 50 ml -50 ml medications Current Medications Medications Dose Ordered Sig/Thony Route Start Time Stop Time Status Last Admin Dose Admin Furosemide 40 mg BID IV 04/01/25 10:00 04/03/25 22:12 40 MG Losartan Potassium 50 mg DAILY PO 04/01/25 10:00 Hold 04/02/25 09:18 50 MG Pantoprazole Sodium 40 mg DAILY PO 04/01/25 10:00 04/03/25 09:41 40 MG Atorvastatin Calcium 40 mg DAILY PO 04/01/25 10:00 04/03/25 09:41 40 MG Carvedilol 3.125 mg Q12HR PO 04/01/25 10:00 04/03/25 22:14 3.125 MG Levothyroxine Sodium 200 mcg QAM@0600 PO 04/02/25 06:00 04/03/25 05:37 200 MCG Levothyroxine Sodium 50 mcg QAM@0600 PO 04/02/25 06:00 Cancel Acetaminophen/ Hydrocodone Bitart 1 tab Q6HPRN PRN PO 04/02/25 06:00 04/03/25 09:54 1 TAB Spironolactone 25 mg DAILY PO 04/02/25 11:02 04/03/25 09:41 25 MG Sodium Chloride 1,000 ml @ 0 mls/hr Q0M IV 04/03/25 00:15 Ondansetron HCl 4 mg Q6HPRN PRN IV 04/02/25 13:15 04/02/25 13:37 4 MG Apixaban 5 mg BID PO 04/02/25 22:00 04/03/25 22:13 5 MG Sacubitril/ Valsartan 1 tab BID PO 04/02/25 22:00 04/03/25 22:14 1 TAB Docusate Sodium 100 mg BID PO 04/02/25 22:00 04/03/25 22:12 100 MG Ertapenem 1 gm/ Sodium Chloride 50 ml @ 100 mls/hr DAILY IV 04/03/25 13:00 04/03/25 13:40 100 MLS/HR objective GENERAL: Alert and oriented x 3. No acute distress. EYES: PERRL, EOMI. Anicteric. HENT: Moist mucous membranes. LUNGS: Bibasilar crackles. CARDIOVASCULAR: Irregular rate and rhythm. ABDOMEN: Soft, nontender and nondistended. EXTREMITIES: bilateral lower extremity 3+ pitting edema, NEUROLOGIC: No focal neurological deficits. SKIN: Warm, dry. laboratory and microbiology Laboratory Tests 04/03/25 06:06 04/01/25 04:52 Test 04/03/25 06:06 Range/Units Serum Glucose 134 H 74-106 mg/dL Problem List HFrEF, new onset. Related cardiomyopathy. Pulmonary hypertension. New onset Atrial fibrillation, controlled rate ( CHADS-VASc score 7, HAS-BLED score 3). Rule out progressive CAD. Hypertension. Dyslipidemia. Hypothyroidism. Obesity. UTI. Assessment/Plan Continued all current supportive medical care. Newly diagnosed severe systolic dysfunction (EF 15%), dilated cardiomyopathy, and pulmonary hypertension (RVSP 38 mmHg) on echocardiogram. History of CAD with stents placed over 20 years ago. The etiology of her cardiomyopathy to is unclear--likely ischemic versus nonischemic --and left heart catheterization is planned to evaluate for active coronary artery disease. [place] for pain management. Eliquis. Lipitor. Coreg. IV antibiotics as ordered. Diuretics with Lasix. Entresto. GI prophylactics. Additional plan as per the hospital course. Plan discussed with: Patient SHANE FRY MD Apr 04, 2025 00:51
[2025-04-04 06:27] LABS: Alanine Aminotransferase 10 U/L (7-40); Albumin 3.7 g/dL (3.2-4.8); Alkaline Phosphatase 71 U/L (46-116); Anion Gap 6 (5-15); BUN/Creatinine Ratio 23.1 (10.0-20.0); Potassium 3.7 mmol/L (3.5-5.1); Sodium 139 mmol/L (136-145); Total Protein 6.3 g/dL (5.7-8.2)
[2025-04-04 06:28] LABS: Bilirubin, Total 0.3 mg/dL (0.2-1.0)
[2025-04-04 06:34] LABS: Blood Urea Nitrogen 27 mg/dL (9-23); Calcium 8.4 mg/dL (8.7-10.4); Carbon Dioxide 37 mmol/L (20-31); Chloride 96 mmol/L (98-107); Glucose 148 mg/dL (74-106)
--- NOTE | 2025-04-04 12:50 | DVHDS2 ---
Discharge Summary Date of Admission Apr 01, 2025 at 01:01 Date of Discharge: Apr 04, 2025 Admitting Diagnosis Acute decompensated systolic and diastolic heart failure Labs/Diagnostic Data: Laboratory Results Test 04/04/25 05:34 04/03/25 06:06 04/02/25 14:24 04/01/25 04:52 Sodium Level 139 mmol/L (136-145) Potassium Level 3.7 mmol/L (3.5-5.1) Chloride Level 96 mmol/L (98-107) Carbon Dioxide Level 37 mmol/L (20-31) Anion Gap 6 (5-15) Blood Urea Nitrogen 27 mg/dL (9-23) Creatinine 1.17 mg/dL (0.550-1.02) Glomerular Filtration Rate Calc 48 mL/min (>90) BUN/Creatinine Ratio 23.1 (10.0-20.0) Serum Glucose 148 mg/dL (74-106) Calcium Level 8.4 mg/dL (8.7-10.4) Total Bilirubin 0.3 mg/dL (0.2-1.0) Aspartate Amino Transferase (AST) 18 U/L (13-40) Alanine Aminotransferase (ALT) 10 U/L (7-40) Alkaline Phosphatase 71 U/L (46-116) Total Protein 6.3 g/dL (5.7-8.2) Albumin 3.7 g/dL (3.2-4.8) Magnesium Level 2.3 mg/dL (1.6-2.6) B-Type Natriuretic Peptide 339.47 pg/mL (0-100) Prothrombin Time 11.1 sec (9.3-11.8) Prothrombin Time INR 1.05 (0.9-1.15) Activated Partial Thromboplast Time 26.5 SEC (24.5-34.5) White Blood Count 7.8 10^3/uL (4.4-10.8) Red Blood Count 3.91 10^6/uL (4.0-5.20) Hemoglobin 11.8 g/dL (12.2-16.2) Hematocrit 35.2 % (36.0-46.0) Mean Corpuscular Volume 90.0 fL (80.0-100.0) Mean Corpuscular Hemoglobin 30.2 pg (28.0-32.0) Mean Corpuscular Hemoglobin Concent 33.5 g/dL (32.0-36.0) Red Cell Distribution Width 13.6 % (11.8-14.3) Platelet Count 244 10^3/uL (140-450) Mean Platelet Volume 7.5 fL (6.9-10.8) Neutrophils (%) (Auto) 77.6 % (37.0-80.0) Lymphocytes (%) (Auto) 12.6 % (10.0-50.0) Monocytes (%) (Auto) 7.2 % (0.0-12.0) Eosinophils (%) (Auto) 2.0 % (0.0-7.0) Basophils (%) (Auto) 0.6 % (0.0-2.0) Neutrophils # (Auto) 6.0 10 ^3/uL (1.6-8.6) Lymphocytes # (Auto) 1.0 10 ^3/uL (0.4-5.4) Monocytes # (Auto) 0.6 10 ^3/uL (0-1.3) Eosinophils # (Auto) 0.2 10 ^3/uL (0-0.8) Basophils # (Auto) 0 10 ^3/uL (0-0.2) Nucleated Red Blood Cells 0.1 % Hemoglobin A1c 5.9 % A1C (<5.7) Triglycerides Level 86 mg/dL (< 150) Cholesterol Level 133 mg/dL (< 200) LDL Cholesterol 93 mg/dL (< 100) HDL Cholesterol 36 mg/dL (40-59) Thyroid Stimulating Hormone (TSH) 8.47 uIU/mL (0.55-4.78) Free Thyroxine (T4) Calculated 0.87 ng/dL (0.89-1.76) Test 04/01/25 03:30 03/31/25 21:02 03/31/25 18:29 03/31/25 16:47 Influenza Type A Antigen Negative (Negative) Influenza Type B Antigen Negative (Negative) SARS-CoV-2 Antigen (Rapid) Negative (NEGATIVE) Urine Color Yellow (Yellow) Urine Clarity Clear (Clear) Urine pH 6.5 (5.0-9.0) Urine Specific [place] 1.025 (1.001-1.035) Urine Protein Negative (Negative) Urine Ketones Negative (Negative) Urine Blood Negative /uL (Negative) Urine Nitrite 1+ (Negative) Urine Bilirubin Negative (Negative) Urine Urobilinogen 2 mg/dL (Negative) Urine Leukocyte Esterase 2+ /uL (Negative) Urine RBC 2 /hpf (0 - 4) Urine Microscopic WBC 12 /HPF (0-5) Urine Squamous Epithelial Cells Few /hpf (<5) Urine Bacteria Many /hpf (None Seen) Urine Hyaline Casts Few /lpf (0 - 2) Urine Mucus Few (None Seen) Urine Glucose Normal mg/dL (Normal) Urine Opiates Screen Neg (NEGATIVE) Urine Fentanyl Screen Neg (NEGATIVE) Urine Barbiturates Screen Neg (NEGATIVE) Urine Phencyclidine Screen Neg (NEGATIVE) Urine Amphetamines Screen Neg (NEGATIVE) Urine Benzodiazepines Screen Neg (NEGATIVE) Urine Cocaine Screen Neg (NEGATIVE) Urine Cannabinoids Screen Neg (NEGATIVE) Troponin I High Sensitivity 21 ng/L (</=34) Lactic Acid Level 0.9 mmol/L (0.4-2.0) Lipase 26 U/L (12-53) Other Laboratory Tests 04/04/25 05:34 04/01/25 04:52 Brief Hx & Hospital Course: History of Present Illness Rain Carlin is a 79-year-old female, with past medical history of hypertension, hyperlipidemia, pre-Diabetic and CVA. The patient came to the ED with a chief complaint of 3 week of progressively worsening bilateral swelling edema, associated with shortness of breath after light walking or mild activities and orthopnea 'I cannot sleep flat" she reports she sleeps in the couch. Today, the patient visited her primary doctor ([facility]) who advised to come into the ED for further evaluation. The patient denies fever, chills, cough, lightheadedness. On the initial evaluation the EKG showed: Atrial fibrillation and BNP is 457.09. The patient will be admitted for further evaluation and management. Course of hospitalization: Patient was started on guideline directed medical therapy. Echocardiogram reveals ejection fraction of 15%. Cardiology consultation was obtained. Patient was found to have improvement with her bilateral lower extremity swelling after being adequately diuresed. Urine culture came back positive for ESBL. Given patient's living arrangements, patient will be transferred to half-way facility to be continued on Invanz 1 g IV daily for a total of 14 day course. Patient was agreeable with discharge plan. All questions answered. Physical examination General: Alert and Oriented x3. No acute distress. Well-nourished. Eyes: EOMI. Anicteric. HENT: Moist mucous membranes. Lungs: Clear to auscultation bilaterally. No accessory muscle use. Cardiovascular: Regular rate and rhythm. No murmur. No JVD. Abdomen: Soft, non-tender and non-distended. No palpable masses. Extremities: No edema. Non-tender. Skin: No rashes or lesions. Warm. Neurologic: No focal neurological deficits. CN II-XII grossly intact, but not individually tested. Psychiatric: Cooperative. Appropriate mood and affect. Total time spent with patient discussing and formulating plan of care: 35 minutes. This medical document was created using an electronic medical record system with [employer] dictation system. Although this document has been carefully reviewed, there may still be some phonetic and typographical errors. These areas are purely typographical due to imperfections of the software programs, and do not reflect any compromise in the patient's medical care. Consults/Reason for consult Cardiology: Decompensated heart failure Condition at Discharge: Poor Final Diagnosis/Problems List -acute decompensated heart failure, probable diastolic -prediabetes -primary hypertension -atrial fibrillation -dyslipidemia -Hypothyroidism -obesity -complicated cystitis with ESBL in the urine Discharge Disposition: [facility] Discharge Instruct/Medications Diet: Cardiac 2g Na,low cholest Medications: Refer to medication reconciliation form Scheduled Furosemide (Lasix), 40 MG PO DAILY Levothyroxine Sodium (Levothyroxine Sodium), 1 TAB PO DAILY, (Reported) 36 Discharge Statement: "Patient was advised to return to the ER or call 911 if any headaches, dizziness, shortness of breath, chest pain, abdominal pain, bleeding, fevers, or worsening of medical condition. Patient was counseled about treatment plan, medications, possible side effects, patientverbalized understanding. All questions were answered to the best of my ability. This discharge took greater then 30 minutes in planning, reviewing documentation, counseling the patient, and discussing with other team members." ASSESSMENT ASSESSMENT Assessment Date of Service: Apr 04, 2025 Billing Provider: REY LUCAS NP Common Visit Codes: 39020-CRG/OBS DISCH DAY >30min REY LUCAS NP Apr 04, 2025 12:50
--- NOTE | 2025-04-04 22:51 | DVHPN2 ---
Progress Note - Dictate Date Seen: Apr 04, 2025 Medical Necessity Reason Pt with a Central, PICC or Fol: Yes Subjective Patient was seen and evaluated in follow up. Patient is on 2 LPM NC. CO2 37, BUN 27, Redevelopment Manager 1.17. Patient pending discharge to SNF. Telemetry reviewed. vital signs Vital Sign Date Time Temp Pulse Resp B/P (MAP) Pulse Ox O2 Delivery O2 Flow Rate FiO2 04/04/25 21:46 115/66 04/04/25 21:45 85 04/04/25 21:00 97.9 18 97 97.9 04/04/25 08:00 Nasal Cannula* 2 28 Total Intake and Output 04/03/25 04/03/25 04/04/25 15:00 23:00 07:00 Intake Total 50 ml 850 ml 700 ml Output Total 900 ml Balance 50 ml -50 ml 700 ml medications Current Medications Medications Dose Ordered Sig/Thony Route Start Time Stop Time Status Last Admin Dose Admin Furosemide 40 mg BID IV 04/01/25 10:00 04/04/25 21:46 40 MG Losartan Potassium 50 mg DAILY PO 04/01/25 10:00 Hold 04/02/25 09:18 50 MG Pantoprazole Sodium 40 mg DAILY PO 04/01/25 10:00 04/04/25 10:35 40 MG Atorvastatin Calcium 40 mg DAILY PO 04/01/25 10:00 04/04/25 10:35 40 MG Carvedilol 3.125 mg Q12HR PO 04/01/25 10:00 04/04/25 21:45 3.125 MG Levothyroxine Sodium 200 mcg QAM@0600 PO 04/02/25 06:00 04/04/25 05:42 200 MCG Levothyroxine Sodium 50 mcg QAM@0600 PO 04/02/25 06:00 Cancel Acetaminophen/ Hydrocodone Bitart 1 tab Q6HPRN PRN PO 04/02/25 06:00 04/03/25 09:54 1 TAB Spironolactone 25 mg DAILY PO 04/02/25 11:02 04/04/25 10:36 25 MG Sodium Chloride 1,000 ml @ 0 mls/hr Q0M IV 04/03/25 00:15 Ondansetron HCl 4 mg Q6HPRN PRN IV 04/02/25 13:15 04/02/25 13:37 4 MG Apixaban 5 mg BID PO 04/02/25 22:00 04/04/25 21:45 5 MG Sacubitril/ Valsartan 1 tab BID PO 04/02/25 22:00 04/04/25 21:44 1 TAB Docusate Sodium 100 mg BID PO 04/02/25 22:00 04/04/25 21:46 100 MG Ertapenem 1 gm/ Sodium Chloride 50 ml @ 100 mls/hr DAILY IV 04/03/25 13:00 04/04/25 10:35 100 MLS/HR objective GENERAL: Alert and oriented x 3. No acute distress. EYES: PERRL, EOMI. Anicteric. HENT: Moist mucous membranes. LUNGS: Bibasilar crackles. CARDIOVASCULAR: Irregular rate and rhythm. ABDOMEN: Soft, nontender and nondistended. EXTREMITIES: bilateral lower extremity 3+ pitting edema, NEUROLOGIC: No focal neurological deficits. SKIN: Warm, dry. laboratory and microbiology Laboratory Tests 04/04/25 05:34 04/01/25 04:52 Test 04/04/25 05:34 Range/Units Serum Glucose 148 H 74-106 mg/dL Problem List HFrEF, new onset. Related cardiomyopathy. Pulmonary hypertension. New onset Atrial fibrillation, controlled rate ( CHADS-VASc score 7, HAS-BLED score 3). Rule out progressive CAD. Hypertension. Dyslipidemia. Hypothyroidism. Obesity. UTI. Assessment/Plan Continued all current supportive medical care. [place] for pain management. Eliquis. Lipitor. Coreg. IV antibiotics as ordered. Diuretics with Lasix. Entresto. GI prophylactics. Additional plan as per the hospital course. Plan discussed with: Patient SHANE FRY MD Apr 04, 2025 22:51
[2025-04-05 01:00] VITALS: BP 104/77; PULSE 88; RESP 17; TEMP 98; O2SAT 97
[2025-04-05 05:00] VITALS: BP 118/90; PULSE 80; RESP 18; TEMP 97.9; O2SAT 98
[2025-04-05 08:00] VITALS: PULSE 85
[2025-04-05 08:56] VITALS: BP 119/62; PULSE 85; RESP 19; TEMP 97.3; O2SAT 98
--- NOTE | 2025-04-05 09:43 | DVH ---
CHEST RADIOGRAPH Indication:SOB Technique: Single frontal view of the chest was obtained Comparison: none FINDINGS: Lines and Tubes: None Lungs: No focal consolidation. Pleura: No effusion. No pneumothorax. Cardiomediastinal contours: Cardiomegaly Bones: No acute osseous abnormality. IMPRESSION: Cardiomegaly with CHF.
[2025-04-05 11:44] LABS: Sodium 140 mmol/L (136-145)
[2025-04-05 11:45] LABS: Anion Gap 7 (5-15)
[2025-04-05 11:50] LABS: BUN/Creatinine Ratio 23.5 (10.0-20.0); Calcium 8.7 mg/dL (8.7-10.4); Carbon Dioxide 37 mmol/L (20-31); Chloride 96 mmol/L (98-107); Potassium 3.3 mmol/L (3.5-5.1)
[2025-04-05 11:51] LABS: Blood Urea Nitrogen 24 mg/dL (9-23); Glucose 160 mg/dL (74-106); Hematocrit 36.7 % (36.0-46.0); Hemoglobin 12.1 g/dL (12.2-16.2); Mean Corpuscular Hemoglobin 29.6 pg (28.0-32.0); Mean Corpuscular Volume 90.0 fL (80.0-100.0); Nucleated Red Blood Cells % 0.1 %
[2025-04-05 13:00] VITALS: BP 116/60; PULSE 78; RESP 19; TEMP 97.9; O2SAT 98
--- NOTE | 2025-04-05 16:09 | DVHPN2 ---
Subjective Denies any chest discomfort today. Reports having swelling of her lower extremities. Reviewed: Care Plan, H&P, Labs, Medications, Previous Orders Changes from previous H/P or p: No Changes General: Per HPI Eyes: No Pain, No Vision change, No Conjunctivae inflammation, No Eyelid inflammation, No Other, No Redness ENT: No Ear pain, No Ear discharge, No Nose pain, No Nose discharge, No Nose congestion, No Mouth pain, No Mouth swelling, No Throat pain, No Throat swelling, No Other Cardiovascular: No Chest Pain, No Palpitations; Orthopnea; No Paroxysmal Noc. Dyspnea; Edema; No Lt Headedness, No Other Respiratory: No Cough, No Dry, No Shortness of breath, No SOB with excertion, No Wheezing, No Hemoptysis, No Pleuritic Pain, No Sputum, No Other Gastrointestinal: No Nausea, No Vomiting, No Abdominal Pain, No Diarrhea, No Constipation, No Melena, No Hematochezia, No Other Genitourinary: No Dysuria, No Frequency, No Incontinence, No Hematuria, No Retention, No Other Musculoskeletal: No other, No neck pain, No shoulder pain, No arm pain, No back pain, No hand pain, No leg pain, No foot pain Skin: No Rash, No Lesions, No Jaundice, No Bruising, No Other Objective Vitals Vital Signs Date Time Temp Pulse Resp B/P (MAP) Pulse Ox O2 Delivery O2 Flow Rate FiO2 04/05/25 13:00 97.9 78 19 116/60 (78) 98 97.9 04/05/25 08:00 Nasal Cannula* 2 28 Intake/Output Intake and Output 04/05/25 07:00 Intake Total 1000 ml Balance 1000 ml Intake Oral 1000 ml # Voids 8 General Appearance: Alert, Oriented X3, Cooperative, mild distress HEENT: Atraumatic, PERRLA Cardiovascular: Normal S1, Normal S2 Genitourinary: No Apparent Abnormalities Extremities: No clubbing, No cyanosis, Other (Plus three pitting edema to bilateral lower extremities) Neuro: Normal gait, Normal speech Skin: Dry, Intact Psych/Mental Status: Mental status NL, Mood NL Medications Current Medications Medications Dose Ordered Sig/Thony Route Start Time Stop Time Status Last Admin Dose Admin Furosemide 40 mg BID IV 04/01/25 10:00 04/05/25 09:29 40 MG Losartan Potassium 50 mg DAILY PO 04/01/25 10:00 Hold 04/02/25 09:18 50 MG Pantoprazole Sodium 40 mg DAILY PO 04/01/25 10:00 04/05/25 09:28 40 MG Atorvastatin Calcium 40 mg DAILY PO 04/01/25 10:00 04/05/25 09:28 40 MG Carvedilol 3.125 mg Q12HR PO 04/01/25 10:00 04/05/25 09:29 3.125 MG Levothyroxine Sodium 200 mcg QAM@0600 PO 04/02/25 06:00 04/05/25 05:30 200 MCG Levothyroxine Sodium 50 mcg QAM@0600 PO 04/02/25 06:00 Cancel Acetaminophen/ Hydrocodone Bitart 1 tab Q6HPRN PRN PO 04/02/25 06:00 04/03/25 09:54 1 TAB Spironolactone 25 mg DAILY PO 04/02/25 11:02 04/05/25 09:28 25 MG Sodium Chloride 1,000 ml @ 0 mls/hr Q0M IV 04/03/25 00:15 Ondansetron HCl 4 mg Q6HPRN PRN IV 04/02/25 13:15 04/02/25 13:37 4 MG Apixaban 5 mg BID PO 04/02/25 22:00 04/05/25 09:27 5 MG Sacubitril/ Valsartan 1 tab BID PO 04/02/25 22:00 04/05/25 09:28 1 TAB Docusate Sodium 100 mg BID PO 04/02/25 22:00 04/05/25 09:28 100 MG Ertapenem 1 gm/ Sodium Chloride 50 ml @ 100 mls/hr DAILY IV 04/03/25 13:00 04/05/25 09:26 100 MLS/HR Laboratory Results Laboratory Tests 04/05/25 11:29 Chemistry Test 04/05/25 11:29 Calcium Level 8.7 mg/dL (8.7-10.4) Cardiac Markers Test 04/05/25 11:29 B-Type Natriuretic Peptide 178.64 pg/mL (0-100) Urinalysis Test 03/31/25 21:02 Urine Color Yellow (Yellow) Urine Clarity Clear (Clear) Urine pH 6.5 (5.0-9.0) Urine Specific [place] 1.025 (1.001-1.035) Urine Protein Negative (Negative) Urine Ketones Negative (Negative) Urine Blood Negative /uL (Negative) Urine Nitrite 1+ (Negative) H Urine Bilirubin Negative (Negative) Urine Urobilinogen 2 mg/dL (Negative) H Urine Leukocyte Esterase 2+ /uL (Negative) Urine RBC 2 /hpf (0 - 4) Urine Microscopic WBC 12 /HPF (0-5) H Urine Squamous Epithelial Cells Few /hpf (<5) Urine Bacteria Many /hpf (None Seen) H Urine Hyaline Casts Few /lpf (0 - 2) Urine Mucus Few (None Seen) Urine Glucose Normal mg/dL (Normal) Microbiology Microbiology Date/Time Source Procedure Growth Status 04/01/25 01:22 Blood Blood Culture - Preliminary NO GROWTH AFTER 72 HOURS OF INCUBATION. Resulted 03/31/25 21:02 Voided Urine Urine Culture - Final Escherichia coli - ESBL Complete Labs and/or images reviewed: Labs reviewed by me, Image(s) reviewed by me Assessment/Plan Assessment/Plan Impression: -acute decompensated heart failure, probable diastolic -prediabetes -primary hypertension -atrial fibrillation -dyslipidemia -Hypothyroidism -obesity -complicated cystitis with ESBL in the urine Plan: Events: DC to SNF when bed available. -guideline directed medical therapy: Continue carvedilol, losartan, add spironolactone, continue IV Lasix -patient placed on Eliquis for atrial fibrillation by admitting hospitalist. Continue until seen by Cardiology -cardiology consultation -continue thyroid supplementation -repeat labs in a.m. Total time spent with patient discussing and formulating plan of care: 35 minutes. This medical document was created using an electronic medical record system with [employer] dictation system. Although this document has been carefully reviewed, there may still be some phonetic and typographical errors. These areas are purely typographical due to imperfections of the software programs, and do not reflect any compromise in the patient's medical care. Plan discussed with: Patient, Other (RN) My Orders Orders - REY LUCAS NP Procedure Category Date Status Time Chest Xray 1 View XY 04/05/25 Resulted 08:34 Imaging Transfer ORDERS 04/05/25 Transmitted Request 13:29 Date of Service: Apr 05, 2025 Billing Provider: REY LUCAS NP Common Visit Codes: [id number] INP/OBS CARE(HIGH) REY LUCAS ETCHER APPRENTICE Apr 05, 2025 16:09
[2025-04-05 16:54] VITALS: BP 109/61; PULSE 87; RESP 19; TEMP 98; O2SAT 95
--- NOTE | 2025-04-05 23:20 | DVHPN2 ---
Progress Note - Dictate Date Seen: Apr 05, 2025 Medical Necessity Reason Pt with a Central, PICC or Fol: Yes Subjective Patient was seen and evaluated in follow up. Patient is on 2 LPM NC. K 3.3, CO2 37, BUN 24. Chest x-ray shows cardiomegaly with CHF. The patient was accepted to [facility]. Telemetry reviewed. vital signs Vital Sign Date Time Temp Pulse Resp B/P (MAP) Pulse Ox O2 Delivery O2 Flow Rate FiO2 04/05/25 13:00 97.9 78 19 116/60 (78) 98 97.9 04/05/25 08:00 Nasal Cannula* 2 28 Total Intake and Output 04/04/25 04/04/25 04/05/25 15:00 23:00 07:00 Intake Total 800 ml 200 ml Balance 800 ml 200 ml medications Current Medications Medications Dose Ordered Sig/Thony Route Start Time Stop Time Status Last Admin Dose Admin Furosemide 40 mg BID IV 04/01/25 10:00 04/05/25 09:29 40 MG Losartan Potassium 50 mg DAILY PO 04/01/25 10:00 Hold 04/02/25 09:18 50 MG Pantoprazole Sodium 40 mg DAILY PO 04/01/25 10:00 04/05/25 09:28 40 MG Atorvastatin Calcium 40 mg DAILY PO 04/01/25 10:00 04/05/25 09:28 40 MG Carvedilol 3.125 mg Q12HR PO 04/01/25 10:00 04/05/25 09:29 3.125 MG Levothyroxine Sodium 200 mcg QAM@0600 PO 04/02/25 06:00 04/05/25 05:30 200 MCG Levothyroxine Sodium 50 mcg QAM@0600 PO 04/02/25 06:00 Cancel Acetaminophen/ Hydrocodone Bitart 1 tab Q6HPRN PRN PO 04/02/25 06:00 04/03/25 09:54 1 TAB Spironolactone 25 mg DAILY PO 04/02/25 11:02 04/05/25 09:28 25 MG Sodium Chloride 1,000 ml @ 0 mls/hr Q0M IV 04/03/25 00:15 Ondansetron HCl 4 mg Q6HPRN PRN IV 04/02/25 13:15 04/02/25 13:37 4 MG Apixaban 5 mg BID PO 04/02/25 22:00 04/05/25 09:27 5 MG Sacubitril/ Valsartan 1 tab BID PO 04/02/25 22:00 04/05/25 09:28 1 TAB Docusate Sodium 100 mg BID PO 04/02/25 22:00 04/05/25 09:28 100 MG Ertapenem 1 gm/ Sodium Chloride 50 ml @ 100 mls/hr DAILY IV 04/03/25 13:00 04/05/25 09:26 100 MLS/HR objective GENERAL: Alert and oriented x 3. No acute distress. EYES: PERRL, EOMI. Anicteric. HENT: Moist mucous membranes. LUNGS: Bibasilar crackles. CARDIOVASCULAR: Irregular rate and rhythm. ABDOMEN: Soft, nontender and nondistended. EXTREMITIES: bilateral lower extremity 3+ pitting edema, NEUROLOGIC: No focal neurological deficits. SKIN: Warm, dry. laboratory and microbiology Laboratory Tests 04/05/25 11:29 Test 04/05/25 11:29 Range/Units Serum Glucose 160 H 74-106 mg/dL Problem List HFrEF, new onset. Related cardiomyopathy. Pulmonary hypertension. New onset Atrial fibrillation, controlled rate ( CHADS-VASc score 7, HAS-BLED score 3). Rule out progressive CAD. Hypertension. Dyslipidemia. Hypothyroidism. Obesity. UTI. Assessment/Plan Continued all current supportive medical care. Eliquis. Lipitor. Coreg. Aldactone. IV antibiotics as ordered. Diuretics with Lasix. Entresto. GI prophylactics. Additional plan as per the hospital course. Plan discussed with: Patient SHANE FRY MD Apr 05, 2025 14:23
== END 2025-04-05 19:00 | DRG 177 ==
LOC: ER 15:54 → OVERFLOW 04-01 01:01 → TELE-WESTW 04-01 17:27 → TELE-EAST 04-03 15:27
PROVIDERS: ADMIT Student in an Organized Health Care Education/Training Program; ATTEND Nurse Practitioner Acute Care
PROC: 05HC33Z Insertion of Infusion Device into Left Basilic Vein, Percutaneous Approach (ICD-10-PCS; principal; 2025-04-03)
PROC: B54NZZA Ultrasonography of Left Upper Extremity Veins, Guidance (ICD-10-PCS; 2025-04-03)
DX: J15.69 Pneumonia due to other Gram-negative bacteria (principal); I50.43 Acute on chronic combined systolic (congestive) and diastolic (congestive) heart failure; I42.0 Dilated cardiomyopathy; I11.0 Hypertensive heart disease with heart failure; J15.9 Unspecified bacterial pneumonia; Z20.822 Contact with and (suspected) exposure to COVID-19; E78.5 Hyperlipidemia, unspecified; N30.90 Cystitis, unspecified without hematuria; I48.91 Unspecified atrial fibrillation; E03.9 Hypothyroidism, unspecified; E66.9 Obesity, unspecified; I27.20 Pulmonary hypertension, unspecified; D64.9 Anemia, unspecified; I25.10 Atherosclerotic heart disease of native coronary artery without angina pectoris; Z90.49 Acquired absence of other specified parts of digestive tract; Z86.73 Personal history of transient ischemic attack (TIA), and cerebral infarction without residual deficits; Z96.653 Presence of artificial knee joint, bilateral; Z95.5 Presence of coronary angioplasty implant and graft; Z79.01 Long term (current) use of anticoagulants; Z68.33 Body mass index [BMI] 33.0-33.9, adult; R73.03 Prediabetes
CPT/HCPCS: 36415; 71045; 80048; 80053; 80061; 80307; 81001; 83036; 83605; 83690; 83735; 83880; 84439; 84443; 84484; 85025; 85610; 85730; 87040; 87086; 87088; 87186; 87426; 87804; 93005; 93306; 93970; 96365; 96368; 96375; G0378; J1335; J2405